=== PATIENT | female | born 1940 | race Caucasian/White ===

== ENCOUNTER 2018-08-15 11:46 | Inpatient (IN) | payer MEDICARE, BC ==
[~2018-08-15] VITALS: Ht 162.6 cm; Wt 76.9 kg
[2018-08-15] MEDS ORDERED: IPRATROPIUM (NEB) 0.5 MG/2.5 ML AMP INH STA (12:05)
[2018-08-15] MEDS ORDERED: ALBUTEROL 0.5% (NEB) 2.5 MG/0.5 ML AMP INH STA (12:05)
[2018-08-15] MEDS ORDERED: FUROSEMIDE 40 MG INJ IV ONE (13:00)
--- NOTE | 2018-08-15 13:10 | ERD ---
ER Documentation Chief Complaint Chief Complaint sob x couple of days HPI This is a 78-year-old female who was sent here by her primary care doctor for shortness of breath with low oxygenation. The patient had history of heart failure and is on Lasix every day. She is complaining of some gradual worsening edema to her lower extremities with some dyspnea on exertion. She saw her primary care doctor who had told her to go to the ER because of O2 sats in the upper 80s and a possible infection in the left lower lung. The patient says she has had a bit of a dry cough over the past couple of days but no fever no chills no abdominal pain. ROS All systems reviewed and are negative except as per history of present illness. PMhx/Soc Medical and Surgical Hx: pt denies Surgical Hx Anesthesia Reaction: No Hx Neurological Disorder: No Hx Respiratory Disorders: No Hx Cardiac Disorders: Yes (htn, hyperlipidemia) Hx Psychiatric Problems: No Hx Miscellaneous Medical Probl: Yes ("kidney problems") Hx Alcohol Use: No Hx Substance Use: No Hx Tobacco Use: No Smoking Status: Never smoker FmHx Family History: No coronary disease Physical Exam Vitals Vital Signs Date Temp Pulse Resp B/P (MAP) Pulse Ox O2 O2 Flow FiO2 Time Delivery Rate 08/15/18 66 20 96 Nasal 2.0 12:58 Cannula 08/15/18 98.3 70 18 125/60 87 11:51 (81) Physical Exam Const: Well-developed, well-nourished Head: Atraumatic, normocephalic Eyes: Normal Conjunctiva, PERRLA, EOMI, normal sclera, no nystagmus ENT: Normal External Ears, Nose and Mouth, moist mucus membranes. Neck: Full range of motion. No meningismus, no lymphadenopathy. Resp: [Bilateral, left greater than right rhonchi to the lower bases Cardio: Regular rate and rhythm, no murmurs, S1 S2 present Abd: Soft, non tender x 4, non distended. Normal bowel sounds, no guarding or rebound, no pulsitile abdominal masses or bruits Skin: No petechiae or rashes, no ecchymosis , no maculopapular rash Back: No midline or flank tenderness Ext: No cyanosis, mild lower extremity edema, FROM x 4, normal inspection, neurovascularly intact x 4 Neur: Awake and alert, STR 5/5 x 4, sensation intact x 4, no focal findings, cerebellum intact Psych: Normal Mood and Affect Result Diagram: 08/15/18 1220 08/15/18 1220 Results 24 hrs Laboratory Tests Test 08/15/18 12:20 White Blood Count 9.6 10^3/ul Red Blood Count 3.54 10^6/ul Hemoglobin 9.5 g/dl Hematocrit 31.5 % Mean Corpuscular Volume 89.0 fl Mean Corpuscular Hemoglobin 26.8 pg Mean Corpuscular Hemoglobin Concent 30.2 g/dl Red Cell Distribution Width 15.9 % Platelet Count 431 10^3/UL Mean Platelet Volume 9.4 fl Immature Granulocytes % 0.500 % Neutrophils % 66.7 % Lymphocytes % 23.6 % Monocytes % 6.3 % Eosinophils % 2.2 % Basophils % 0.7 % Nucleated Red Blood Cells % 0.0 /100WBC Immature Granulocytes # 0.050 10^3/ul Neutrophils # 6.4 10^3/ul Lymphocytes # 2.3 10^3/ul Monocytes # 0.6 10^3/ul Eosinophils # 0.2 10^3/ul Basophils # 0.1 10^3/ul Nucleated Red Blood Cells # 0.0 10^3/ul Sodium Level 142 mmol/L Potassium Level 4.6 mmol/L Chloride Level 107 mmol/L Carbon Dioxide Level 26 mmol/L Anion Gap 9 Blood Urea Nitrogen 51 mg/dl Creatinine 3.78 mg/dl Est Glomerular Filtrat Rate mL/min mL/min Glucose Level 226 mg/dl Calcium Level 9.3 mg/dl Total Bilirubin 0.3 mg/dl Direct Bilirubin 0.00 mg/dl Indirect Bilirubin 0.3 mg/dl Aspartate Amino Transf (AST/SGOT) 22 IU/L Alanine Aminotransferase (ALT/SGPT) 19 IU/L Alkaline Phosphatase 131 IU/L Troponin I Pending B-Type Natriuretic Peptide Pending Total Protein 7.7 g/dl Albumin 3.9 g/dl Globulin 3.80 g/dl Albumin/Globulin Ratio 1.02 Current Medications Medications Dose Sig/[place] Start Time Status Last (Trade) Ordered Route PRN Stop Time Admin Dose Reason Admin Albuterol 10 mg ONCE STAT 08/15/18 DC 08/15/18 (Proventil INH 12:05 08/15/18 12:46 0.5% (Neb)) 12:06 Ipratropium 1 mg ONCE STAT 08/15/18 DC 08/15/18 [place] INH 12:05 08/15/18 12:46 (Atrovent 12:06 0.02% (Neb)) Furosemide 40 mg ONCE ONCE 08/15/18 DC (Lasix) IV 13:00 08/15/18 13:01 Procedures/MDM Patient: HEATHER LUNA : 1940 Age: 78 Sex: F MR #: [id number] DOS: 08/15/18 1205 Ordering MD: ARMANDO WILSON DO Location: E/R Room/Bed: PROCEDURE: XR Chest. CLINICAL INDICATION: Chest pain TECHNIQUE: AP chest was obtained. COMPARISON: None. FINDINGS: Hypoventilatory chest. Heart mild to moderately enlarged. Mild pulmonary va scular congestion with perivascular wall indistinctness. Mild perihilar patchy densities. Rule out congestive heart or pulmonary edema. Bilateral tiny pleural effusions are suspected. Left basilar consolidation may all be due to atelectasis still additional infiltrate should be considered. IMPRESSION: 1. Congestive heart failure with mild interstitial pulmonary edema. 2. Bilateral tiny pleural effusions are suspected. 3. Left lower lobe consolidation may all be due to atelectasis however rule out acute infiltrate. RPTAT:AAJJ Physician aKne Date Time Electronically viewed and signed by Carmen Ann Physician on 08/15/2018 12:31 BM/ CC: ARMANDO WILSON DO [id number] EKG: Rate/Rhythm: Normal Sinus Rhythm,NL intervals QRS, ST, QT: NORMAL DE, QRS, QT] Impression: NORMAL EKG Patient received some IV Lasix. The patient's creatinine is elevated at 3.78 I do not know her baseline as this is her first visit here, she does tell me however that she has some renal insufficiency but does not know her numbers. Will need to admit for diuresis and eval for renal insufficiency Do not feel the patient is septic or clinically has pneumonia. She does not have any fever or productive sputum. She has had a chronic cough for a couple w eeks now she states. She does not meet sepsis criteria Departure Diagnosis: Primary Impression: Pulmonary edema Chronicity: acute Qualified Codes: J81.0 - Acute pulmonary edema Additional Impression: CHF (congestive heart failure) Heart failure type: unspecified Heart failure chronicity: unspecified Qualified Codes: I50.9 - Heart failure, unspecified Condition: Stable DYANA TRUJILLO DO Aug 15, 2018 13:10
[2018-08-15] MEDS ORDERED: LUBI24CA7 PO (13:21)
[2018-08-15] MEDS ORDERED: CLOP75TA27 PO (13:21)
[2018-08-15] MEDS ORDERED: LINA5TAB PO (13:21)
[2018-08-15] MEDS ORDERED: HYDR-3671 PO (13:21)
[2018-08-15] MEDS ORDERED: MAGN400T27 PO (13:21)
[2018-08-15] MEDS ORDERED: RANO10002 PO (13:21)
[2018-08-15] MEDS ORDERED: METO-429 PO (13:21)
[2018-08-15] MEDS ORDERED: SOLI10TA2 PO (13:21)
[2018-08-15] MEDS ORDERED: POTA8CAP PO (13:21)
[2018-08-15] MEDS ORDERED: ATOR20TA38 PO (13:21)
[2018-08-15] MEDS ORDERED: FURO40TA4 PO (13:21)
[2018-08-15] MEDS ORDERED: OLME1TAB37 PO (13:21)
[2018-08-15] MEDS ORDERED: ACETAMINOPHEN 325 MG TAB PO PRN (14:30)
[2018-08-15] MEDS ORDERED: ONDANSETRON 4 MG INJ IV PRN (14:30)
--- NOTE | 2018-08-15 17:55 | HP ---
Date/Time of Note Date/Time of Note DATE: 08/15/18 TIME: 17:53 Assessment/Plan VTE Prophylaxis SCD contraindicated: low risk/ambulating Pharmacological prophylaxis: LMWH Lines/Catheters IV Catheter Type (from Nrsg): [place] [employer] line still needed: No Urinary Cath still in place: No Reason Cath still needed: urinary retention Assessment/Plan Assessment/Plan 1. Systolic and diastolic heart failure progressively getting worse 2. Chronic kidney disease stage IV progressively getting worse 3. Diabetes type 2 better controlled 4. Hypertension with better control 5. Epigastric pain 6. Dizziness 7. Memory impairment 8. Aortic stenosis and mitral insufficiency 9. Unable chronic disease 10. Severe osteoarthritis of multiple joints 11. Unstable gait with recurrent episodes of fall 12. Major depression 13. Grief reaction 14. Status post cataract ectomy 15. Severe constipation with episodes of diarrhea 16. Pelvic arterial disease 17. Osteoporosis. Result Diagram: 08/15/18 1220 08/15/18 1220 Results 24hrs Laboratory Tests Test 08/15/18 12:20 White Blood Count 9.6 Red Blood Count 3.54 L Hemoglobin 9.5 L Hematocrit 31.5 L Mean Corpuscular Volume 89.0 Mean Corpuscular Hemoglobin 26.8 L Mean Corpuscular Hemoglobin Concent 30.2 L Red Cell Distribution Width 15.9 H Platelet Count 431 H Mean Platelet Volume 9.4 Immature Granulocytes % 0.500 H Neutrophils % 66.7 Lymphocytes % 23.6 Monocytes % 6.3 Eosinophils % 2.2 Basophils % 0.7 Nucleated Red Blood Cells % 0.0 Immature Granulocytes # 0.050 H Neutrophils # 6.4 Lymphocytes # 2.3 Monocytes # 0.6 Eosinophils # 0.2 Basophils # 0.1 Nucleated Red Blood Cells # 0.0 Prothrombin Time 12.3 Prothrombin Time Ratio 1.0 INR International Normalized Ratio 0.90 Activated Partial Thromboplast Time 28.5 Sodium Level 142 Potassium Level 4.6 Chloride Level 107 Carbon Dioxide Level 26 Anion Gap 9 Blood Urea Nitrogen 51 H Creatinine 3.78 H Est Glomerular Filtrat Rate mL/min Glucose Level 226 H Calcium Level 9.3 Total Bilirubin 0.3 Direct Bilirubin 0.00 Indirect Bilirubin 0.3 Aspartate Amino Transf (AST/SGOT) 22 Alanine Aminotransferase (ALT/SGPT) 19 Alkaline Phosphatase 131 H Troponin I < 0.012 B-Type Natriuretic Peptide 3310 H Total Protein 7.7 Albumin 3.9 Globulin 3.80 H Albumin/Globulin Ratio 1.02 HPI/ROS Admit Date/Time Admit Date/Time Aug 15, 2018 at 14:08 Hx of Present Illness Worsening of her shortness of breath. Getting tired easily. Unable to walk without support. Progressively getting worse seen in office 2 days ago. Found to be in moderate respiratory distress with 2+ edema both lower extremities. Adjusted the dose of diuretics. Recommended to go to the hospital. Refused. Today I received a call that she is in a more short of breath I recommended immediately go to the hospital and she was admitted. ROS Subjective hx not possible: pt critical Constitutional: chills, diaphoresis, disoriented, fatigue, nausea, weight change (Gained about 2 pounds last week.); No no complaints, No improved, No febrile, No poor po, No other ENT: congestion, dysphagia (63); No no complaints, No bleeding, No pain, No discharge, No sore throat, No other Respiratory: cough, pleuritic pain, shortness of breath; No no complaints, No pain, No sputum, No wheezing, No other Cardiovascular: edema, lightheadedness, orthopenea; No no complaints, No chest pain, No palpitations, No paroxysmal nocturnal dyspnea, No other Gastrointestinal: constipation, decreased appetite, flatus; No no complaints, No pain, No blood, No diarrhea, No nausea, No passing stool, No vomiting, No other Genitourinary: dysuria; No no complaints, No bleeding, No discharge, No flank pain, No hematuria, No other Musculoskeletal: back pain, bone/joint pain, neck pain; No no complaints, No restricted range of motion, No swelling, No other Skin: erythema, pruritis, rash; No no complaints, No bruising, No laceration, No skin lesions, No other Neurologic: dizziness, focal-weakness; No no complaints, No confusion, No headache, No syncope, No seizure, No other Endocrine: dry skin; No no complaints, No polyuria, No polydypsia, No temp intolerance, No weight change, No other Lymphatic: No no complaints, No adenopathy, No tender nodes, No lymphadema, No other Psychological: anxiety, confusion, depression; No no complaints, No nl mood/affect, No suicidal, No other Immunologic: No no complaints, No immunodeficiency, No pruritis, No rhinitis, No urticaria, No other PMH/Family/Social Past Medical History Medical History: angina, congestive heart failure, coronary artery disease, diabetes, diverticulitis, GERD, high cholesterol, hypertension, hypothyroid, renal disease, urinary tract infection (This is is in the malleolus exhibits movements of scalp this is a pleasant) Medications Current Medications Ondansetron HCl (Zofran Inj) 4 mg ER BRIDGE PRN IV NAUSEA/VOMITING; Start 08/15/18 at 14:30; Stop 08/16/18 at 14:29 Acetaminophen (Tylenol Tab) 650 mg ER BRIDGE PRN PO .MILD PAIN 1-3 OR TEMP; Start 08/15/18 at 14:30; Stop 08/16/18 at 14:29 Coded Allergies: No Known Allergy (Unverified , 08/15/18) Family History Significant Family History: no pertinent family hx Social History Alcohol Use: none Smoking Status: Never smoker Drug Use: none Exam/Review of Systems Vital Signs Vitals Vital Signs Date Temp Pulse Resp B/P (MAP) Pulse Ox O2 O2 Flow FiO2 Time Delivery Rate 08/15/18 98.0 72 18 137/64 98 Room Air 17:10 (88) 08/15/18 2.0 12:58 Exam Constitutional: alert, oriented (Not in time.), well developed, distress, frail; No non-verbal, No other Psych: anxiety, confusion, depression; No no complaints, No nl mood/affect, No suicidal, No other Head: normocephalic, atraumatic; No lacerations, No hematomas, No other Eyes: EOMI, nl lids, PERRL (Status post cataract ectomy changes.); No nl conjunctiva, No nl sclera, No icteric, No fundi, disc, No other ENMT: tympanic membranes; No nl external ears & nose, No nl lips & teeth, No nl nasal mucosa & septum, No mucosa pink and moist, No intubated, No other Neck: jvd, bruits; No supple, No non-tender, No masses, No thyromegaly, No nuchal rigidity, No other Respiratory: normal air movement, congested cough, crackles/rales, diminished breath sounds; No clear to auscultation, No intercostal retraction, No labored breathing, No respirations, No tactile fremitus, No wheezing, No other Cardiovascular: regular rate and rhythm, nl pulses, bruits, systolic murmur; No diastolic murmur, No edema, No gallop, No irregular rhythm, No jugular venous distention (JVD), No murmurs/extra sounds, No rub, No S3, No S4, No other Gastrointestinal: nl liver, spleen, bowel sounds, distended; No soft, No non-tender, No ascites, No firm, No hepatomegaly, No mass, No rebound or guarding, No splenomegaly, No surgical scars, No tender, No other Genitourinary - Female: nl adnexae, nl external genitalia; No CMT, No CVA tenderness, No uterus, No other Musculoskeletal: joint tenderness, muscle tone, muscle weakness (Decreased tone decreased muscular mass), swelling ( of both lower extremities.); No nl extremities to inspection, No nl gait and stance, No range of motion, No spine non-tender, No other Extremities: normal pulses, edema, pitting pedal edema; No calf tenderness, No cyanosis, No clubbing, No palpable cord, No tenderness, No other Neurological: [employer] II-XII intact, nl mental status (Memory impairment decreased mood decreased energy.); No nl speech, No nl strength, No confused, No DTR's symmetric, No focal weakness, No lethargic, No numbness, No reflexes, No unresponsive, No other Skin: nl turgor (Decreased), rash or lesions; No diaphoresis, No ecchymosis, No laceration, No puncture, No other Lymph: No nl lymph nodes, No enlarged, No nontender, No other JOANN PATEL MD Aug 15, 2018 17:55
[2018-08-15] MEDS: CLOPIDOGREL 75 MG TAB PO SCH (18:00)
[2018-08-15] MEDS: SOLIFENACIN 5 MG TAB PO SCH (18:00)
[2018-08-15 18:01] VITALS: PULSE 73
[2018-08-15 18:14] VITALS: Ht 162.6 cm; Wt 76.9 kg
[2018-08-15 18:21] VITALS: BP 162/72; PULSE 77; RESP 17
[2018-08-15 18:42] VITALS: BP 156/61
[2018-08-15 20:00] VITALS: BP 166/74; PULSE 81; PULSE 82; RESP 18
[2018-08-15] MEDS: ALBUTEROL/IPRATROPIUM (NEB) 3 ML AMP HHN SCH (20:41)
[2018-08-15] MEDS: RANOLAZINE (SR) 500 MG TAB PO SCH (20:54)
[2018-08-15] MEDS: POTASSIUM CHLORIDE (SR) 8 MEQ CAP PO SCH (20:54)
[2018-08-15] MEDS: SACUBITRIL/VALSARTAN (24mg-26mg) TABLET PO SCH (20:54)
[2018-08-15] MEDS: MAGNESIUM OXIDE 400 MG TAB PO SCH (20:54)
[2018-08-15] MEDS: LUBIPROSTONE 24 MCG CAP PO SCH (20:54)
[2018-08-15] MEDS: METOPROLOL 50 MG TAB PO SCH (20:55)
[2018-08-15] MEDS: ATORVASTATIN 20 MG TAB PO SCH (20:55)
[2018-08-15] MEDS: FUROSEMIDE 40 MG TAB PO SCH (20:56)
[2018-08-15] MEDS ORDERED: DEXTROSE 50% 50 ML SYRINGE IV PRN ×2 (21:00)
[2018-08-15] MEDS ORDERED: GLUCAGON 1 MG INJ IM PRN (21:00)
[2018-08-15] MEDS ORDERED: ACETAMINOPHEN 500 MG TAB PO PRN (21:00)
[2018-08-15] MEDS ORDERED: GLUCOSE GEL 15 GRAM TUBE PO PRN ×2 (21:00)
[2018-08-15] MEDS ORDERED: GLUCOSE GEL 15 GRAM TUBE BUCCAL PRN (21:00)
[2018-08-15] MEDS: INSULIN ASPART [NOVOLOG] 3 ML PEN SC SCH (22:29)
[2018-08-16] VITALS (10 sets, daily range): BP systolic 133–142; BP diastolic 62–77; PULSE 64–83; RESP 18–20
[2018-08-16] MEDS: INSULIN ASPART [NOVOLOG] 3 ML PEN SC SCH ×4 (00:56→17:25)
[2018-08-16] MEDS: ALBUTEROL/IPRATROPIUM (NEB) 3 ML AMP HHN SCH ×4 (02:04→19:28)
[2018-08-16] MEDS: RANOLAZINE (SR) 500 MG TAB PO SCH (08:13)
[2018-08-16] MEDS: LINAGLIPTIN 5 MG TABLET PO SCH (08:13)
[2018-08-16] MEDS: POTASSIUM CHLORIDE (SR) 8 MEQ CAP PO SCH (08:13)
[2018-08-16] MEDS: METOPROLOL 50 MG TAB PO SCH ×2 (08:14→21:00)
[2018-08-16] MEDS: SOLIFENACIN 5 MG TAB PO SCH (08:14)
[2018-08-16] MEDS: SACUBITRIL/VALSARTAN (24mg-26mg) TABLET PO SCH (08:14)
[2018-08-16] MEDS: CLOPIDOGREL 75 MG TAB PO SCH (08:14)
[2018-08-16] MEDS: LUBIPROSTONE 24 MCG CAP PO SCH ×2 (08:14→20:59)
[2018-08-16] MEDS: FUROSEMIDE 40 MG TAB PO SCH (08:14)
[2018-08-16] MEDS: MAGNESIUM OXIDE 400 MG TAB PO SCH (08:14)
--- NOTE | 2018-08-16 10:58 | CONS ---
Assessment/Plan Assessment/Plan Hospital Course (Demo Recall) Acute on chronic ?diastolic dysfunction: Suspect diastolic dysfunction rather than systolic as EF reportedly normal 1 yr prior. Trigger is likely salt indiscretion. Mild on exam currently after diuresis but still decompensated Acute respiratory failure: due to CHF. Pulm edema on CXR on admission. Off oxygen this am sat 88-90% HTN DM CKD: unclear baseline but reportedly stage 4. Cr 3.8 on admission. HL -given lasix 40mg PO this am. Will give 20mg IV this evening. Probably will need maintenance 20mg daily on discharge and to avoid salt -echo -d/c ranexa as no chest pain and no h/o CAD, normal stress one year ago -d/c entresto as no indication of systolic heart failure as of yet -continue metoprolol 50mg BID -restart amlodipine 10mg -hold olmesartan 36 hours as she received entresto -continue hydralazine 25mg BID -?clonidine patch to be replaced per daughter -plavix, lipitor 20mg Consultation Date/Type/Reason Admit Date/Time Aug 15, 2018 at 14:08 Type of Consult Cardiology Requesting Provider: JOANN PATEL MD Date/Time of Note DATE: 08/16/18 TIME: 10:49 Hx of Present Illness 78 yo F with a h/o CKD (unknown baseline), DM, HTN, HL, who presented with dyspnea, edema, hypoxia. She notes that one year ago she had evaluation by Dr. Cui of cardiology and she was told everything cardiac related was normal including a normal stress test and echo. Since then she has been doing well but over the past 2 months she has been having dyspnea on exertion and worsening edema. Her daughter gives her lasix 40mg on average once a week for edema. She was noted to have hypoxia at Dr. Patel's office and was asked to come in for admission. CXR confirmed pulm edema and she was given IV lasix with good UOP. She denies chest pain or h/o ND. Daughter and pt admit she uses a lot of salt in her diet. Pt uses clonidine patch 0.3, hydralazine 25mg BID, metoprolol 50mg BID, olmesartan 40mg/amlodipine 10mg/HCTZ 25mg for BP control. She takes plavix and lipitor 20mg for primary prevention. per hPi Past Medical History per HPI Home Meds Reported Medications Magnesium Oxide* (Mag-Oxide*) 400 Mg Tablet, 400 MG PO DAILY, TAB 08/15/18 Atorvastatin Calcium* (Atorvastatin Calcium*) 20 Mg Tablet, 20 MG PO QHS, #30 TAB 08/15/18 Hydralazine Hcl* (Hydralazine Hcl*) 25 Mg Tab, 25 MG PO BID WITH MEALS, #120 TAB 08/15/18 Furosemide* (Furosemide*) 40 Mg Tablet, 40 MG PO DAILY, TAB 08/15/18 Solifenacin* (Vesicare*) 10 Mg Tablet, 10 MG PO DAILY, TAB 08/15/18 Ranolazine* (Ranexa*) 1,000 Mg Tab.sr.12h, 1000 MG PO Q12, TAB 08/15/18 Lubiprostone* (Amitiza*) 24 Mcg Capsule, 24 MCG PO BID, #60 CAP 08/15/18 Metoprolol Tartrate* (Lopressor*) 50 Mg Tab, 50 MG PO BID, #60 TAB 08/15/18 Linagliptin (TRADJENTA) 5 Mg Tablet, 5 MG PO DAILY, TAB 08/15/18 Clopidogrel Bisulfate (Clopidogrel) 75 Mg Tablet, 75 MG PO DAILY, #30 TAB 08/15/18 Lwlputlmlu-Bmzijgunuv-ISKS (Tribenzor) 40-10-25 Mg Tablet, 1 TAB PO DAILY, TAB 08/15/18 Potassium Chloride* (Potassium Chloride*) 8 Meq Capsule.er, 8 MEQ PO DAILY, CAP 08/15/18 Medications Current Medications Atorvastatin Calcium (Lipitor) 20 mg QHS PO Last administered on 08/15/18at 20:55; Admin Dose 20 MG; Start 08/15/18 at 21:00 Clopidogrel Bisulfate (plaVIX) 75 mg DAILY PO Last administered on 08/16/18at 08:14; Admin Dose 75 MG; Start 08/15/18 at 18:00 Furosemide (Lasix) 40 mg DAILY PO Last administered on 08/16/18at 08:14; Admin Dose 40 MG; Start 08/15/18 at 18:00 Hydralazine HCl (Apresoline) 25 mg BID WITH MEALS PO Last administered on 08/16/18at 08:13; Admin Dose 25 MG; Start 08/15/18 at 18:00 Linagliptin (Tradjenta) 5 mg DAILY PO Last administered on 08/16/18 08:13; Admin Dose 5 MG; Start 08/16/18 at 09:00 Lubiprostone (Amitiza) 24 mcg BID PO Last administered on 08/16/18 08:14; Admin Dose 24 MCG; Start 08/15/18 at 21:00 Magnesium Oxide (Mag-Ox 400) 400 mg DAILY PO Last administered on 08/16/18 08:14; Admin Dose 400 MG; Start 08/15/18 at 18:00 Metoprolol Tartrate (Lopressor) 50 mg BID PO Last administered on 08/16/18 08:14; Admin Dose 50 MG; Start 08/15/18 at 21:00 Potassium Chloride (Micro-K) 8 meq DAILY PO Last administered on 08/16/18 08:13; Admin Dose 8 MEQ; Start 08/15/18 at 18:00 Ranolazine (Ranexa) 1,000 mg Q12 PO Last administered on 08/16/18 08:13; Admin Dose 1,000 MG; Start 08/15/18 at 21:00 Solifenacin (Vesicare) 10 mg DAILY PO Last administered on 08/16/18 08:14; Admin Dose 10 MG; Start 08/15/18 at 18:00 Sacubitril/ Valsartan (Entresto 24 Mg-26 Mg) 1 tab BID PO Last administered on 08/16/18 08:14; Admin Dose 1 TAB; Start 08/15/18 at 21:00 Albuterol/ Ipratropium (Duoneb) 3 ml Q6H RESP THERAPY HHN Last administered on 08/16/18 07:43; Admin Dose 3 ML; Start 08/15/18 at 20:00 Insulin Aspart (Novolog Insulin Pen) NOVOLOG *MODERATE* ALGORI... Q6 SC Last administered on 08/16/18 06:11; Admin Dose 2 UNIT; Start 08/15/18 at 21:00; Stop 08/16/18 at 20:59 Acetaminophen (Tylenol Tab) 500 mg Q6H PRN PO MILD PAIN(1-3)OR ELEVATED TEMP; Start 08/15/18 at 21:00 Miscellaneous Information 1 ea NOTE XX ; Start 08/15/18 at 21:00 Glucose (Glutose) 15 gm Q15M PRN PO DECREASED GLUCOSE; Start 08/15/18 at 21:00 Glucose (Glutose) 22.5 gm Q15M PRN PO DECREASED GLUCOSE; Start 08/15/18 at 21:00 Dextrose (D50w Syringe) 25 ml Q15M PRN IV DECREASED GLUCOSE; Start 08/15/18 at 21:00 Dextrose (D50w Syringe) 50 ml Q15M PRN IV DECREASED GLUCOSE; Start 08/15/18 at 21:00 Glucagon (Glucagen) 1 mg Q15M PRN IM DECREASED GLUCOSE; Start 08/15/18 at 21:00 Glucose (Glutose) 15 gm Q15M PRN BUCCAL DECREASED GLUCOSE; Start 08/15/18 at 21:00 Insulin Aspart (Novolog Insulin Pen) (Adult SC Insulin - Moder... WITH MEALS BEDTIME SC ; Start 08/16/18 at 21:00 Diagnostic Test (Pha) (Accu-Chek) 1 ea 02 XX ; Start 08/17/18 at 02:00 Allergies: Coded Allergies: No Known Allergy (Unverified , 08/15/18) Social History Smoking Status: Never smoker Exam/Review of Systems Vital Signs Vitals Vital Signs Date Temp Pulse Resp B/P (MAP) Pulse Ox O2 O2 Flow FiO2 Time Delivery Rate 08/16/18 Nasal 5.0 08:30 Cannula 08/16/18 74 08:01 08/16/18 98.0 19 134/72 93 07:50 (92) 08/15/18 100 20:13 Intake and Output 08/15/18 08/15/18 08/16/18 1515:00 23:00 07:00 IntakeIntake Total 400 ml OutputOutput Total 900 ml BalanceBalance -500 ml Exam Constitutional: alert, oriented Psych: no complaints, nl mood/affect Head: normocephalic, atraumatic Neck: jvd (8-9cm) Respiratory: crackles/rales (mid lungs); No clear to auscultation Cardiovascular: regular rate and rhythm, edema (trace), systolic murmur (2/6 JAROD) Gastrointestinal: soft, non-tender; No distended Musculoskeletal: No nl extremities to inspection Neurological: nl mental status, nl speech Labs Result Diagram: 08/15/18 1220 08/15/18 1220 Results 24hrs Laboratory Tests Test 08/15/18 12:20 08/15/18 18:02 08/15/18 18:51 08/15/18 18:52 White Blood Count 9.6 Red Blood Count 3.54 L Hemoglobin 9.5 L Hematocrit 31.5 L Mean Corpuscular 89.0 Volume Mean Corpuscular 26.8 L Hemoglobin Mean Corpuscular 30.2 L Hemoglobin Concent Red Cell 15.9 H Distribution Width Platelet Count 431 H Mean Platelet 9.4 Volume Immature 0.500 H Granulocytes % Neutrophils % 66.7 Lymphocytes % 23.6 Monocytes % 6.3 Eosinophils % 2.2 Basophils % 0.7 Nucleated Red 0.0 Blood Cells % Immature 0.050 H Granulocytes # Neutrophils # 6.4 Lymphocytes # 2.3 Monocytes # 0.6 Eosinophils # 0.2 Basophils # 0.1 Nucleated Red 0.0 Blood Cells # Prothrombin Time 12.3 Prothrombin Time 1.0 Ratio INR International 0.90 Normalized Ratio Activated 28.[address] Time Sodium Level 142 Potassium Level 4.6 Chloride Level 107 Carbon Dioxide 26 Level Anion Gap 9 Blood Urea 51 H Nitrogen Creatinine 3.78 H Est Glomerular Filtrat Rate mL/min Glucose Level 226 H Calcium Level 9.3 Total Bilirubin 0.3 Direct Bilirubin 0.00 Indirect Bilirubin 0.3 Aspartate Amino 22 Transf (AST/SGOT) Alanine 19 Aminotransferase ( ALT/SGPT) Alkaline 131 H Phosphatase Troponin I < 0.012 < 0.012 B-Type Natriuretic 3310 H Peptide Total Protein 7.7 Albumin 3.9 Globulin 3.80 H Albumin/Globulin 1.02 Ratio Blood Gas Specimen Blood arterial Source Arterial Blood 08/15/2018 8:00:13 Date Drawn PM Arterial Blood pH 7.393 (Temp corrected) Arterial Blood 42.8 pCO2 (Temp correct) Arterial Blood pO2 39.5 *L (Temp corrected) Arterial Blood 25.5 HCO3 Arterial Blood 0.5 Base Excess Arterial Blood 73.9 L Oxygen Saturation Kimo Test ACCEPTAB Arterial Blood Gas Left Radial Puncture Site Arterial 0.3 Blood Carboxyhemog lobin Arterial Blood 0 Methemoglobin Blood Gas A-a O2 59.0 H Differential Oxyhemoglobin 73.7 L Percent Blood Gas 37.0 Temperature Blood Gas Modality ROOM AIR FiO2 21.0 Blood Gas Critical ChiomaDANELSON RN Value Read Back Blood Gas Notified MA Whom Blood Gas Notified 08/15/2018 8:11:51 Time PM Magnesium Level 2.3 Carcinoembryonic 2.2 Antigen Thyroid 2.060 Stimulating Hormone (TSH) Iron Level 13 L Total Iron Binding 283 Capacity Percent Iron 5 L Saturation Creatine Kinase 45 Creatine Kinase 1.4 Index Creatinine Kinase 0.62 MB (Mass) Test 08/15/18 21:05 08/15/18 22:12 08/16/18 00:25 08/16/18 00:35 Bedside Glucose 284 H 248 H 182 Creatine Kinase 40 Creatine Kinase 1.2 Index Creatinine Kinase 0.46 MB (Mass) Troponin I < 0.012 Test 08/16/18 06:03 08/16/18 08:11 Bedside Glucose 179 160 Medications Medications Current Medications Atorvastatin Calcium (Lipitor) 20 mg QHS PO Last administered on 08/15/18 20:55; Admin Dose 20 MG; Start 08/15/18 at 21:00 Clopidogrel Bisulfate (plaVIX) 75 mg DAILY PO Last administered on 08/16/18 08:14; Admin Dose 75 MG; Start 08/15/18 at 18:00 Furosemide (Lasix) 40 mg DAILY PO Last administered on 08/16/18 08:14; Admin Dose 40 MG; Start 08/15/18 at 18:00 Hydralazine HCl (Apresoline) 25 mg BID WITH MEALS PO Last administered on 08/16/18 08:13; Admin Dose 25 MG; Start 08/15/18 at 18:00 Linagliptin (Tradjenta) 5 mg DAILY PO Last administered on 08/16/18 08:13; Admin Dose 5 MG; Start 08/16/18 at 09:00 Lubiprostone (Amitiza) 24 mcg BID PO Last administered on 08/16/18 08:14; Admin Dose 24 MCG; Start 08/15/18 at 21:00 Magnesium Oxide (Mag-Ox 400) 400 mg DAILY PO Last administered on 08/16/18 08:14; Admin Dose 400 MG; Start 08/15/18 at 18:00 Metoprolol Tartrate (Lopressor) 50 mg BID PO Last administered on 08/16/18 08:14; Admin Dose 50 MG; Start 08/15/18 at 21:00 Potassium Chloride (Micro-K) 8 meq DAILY PO Last administered on 4/7/19at 08:13; Admin Dose 8 MEQ; Start 08/15/18 at 18:00 Ranolazine (Ranexa) 1,000 mg Q12 PO Last administered on 08/16/18 08:13; Admin Dose 1,000 MG; Start 08/15/18 at 21:00 Solifenacin (Vesicare) 10 mg DAILY PO Last administered on 08/16/18 08:14; Admin Dose 10 MG; Start 08/15/18 at 18:00 Sacubitril/ Valsartan (Entresto 24 Mg-26 Mg) 1 tab BID PO Last administered on 08/16/18 08:14; Admin Dose 1 TAB; Start 08/15/18 at 21:00 Albuterol/ Ipratropium (Duoneb) 3 ml Q6H RESP THERAPY HHN Last administered on 08/16/18 07:43; Admin Dose 3 ML; Start 08/15/18 at 20:00 Insulin Aspart (Novolog Insulin Pen) NOVOLOG *MODERATE* ALGORI... Q6 SC Last administered on 08/16/18 06:11; Admin Dose 2 UNIT; Start 08/15/18 at 21:00; Stop 08/16/18 at 20:59 Acetaminophen (Tylenol Tab) 500 mg Q6H PRN PO MILD PAIN(1-3)OR ELEVATED TEMP; Start 08/15/18 at 21:00 Miscellaneous Information 1 ea NOTE XX ; Start 08/15/18 at 21:00 Glucose (Glutose) 15 gm Q15M PRN PO DECREASED GLUCOSE; Start 08/15/18 at 21:00 Glucose (Glutose) 22.5 gm Q15M PRN PO DECREASED GLUCOSE; Start 08/15/18 at 21:00 Dextrose (D50w Syringe) 25 ml Q15M PRN IV DECREASED GLUCOSE; Start 08/15/18 at 21:00 Dextrose (D50w Syringe) 50 ml Q15M PRN IV DECREASED GLUCOSE; Start 08/15/18 at 21:00 Glucagon (Glucagen) 1 mg Q15M PRN IM DECREASED GLUCOSE; Start 08/15/18 at 21:00 Glucose (Glutose) 15 gm Q15M PRN BUCCAL DECREASED GLUCOSE; Start 08/15/18 at 21:00 Insulin Aspart (Novolog Insulin Pen) (Adult SC Insulin - Moder... WITH MEALS BEDTIME SC ; Start 08/16/18 at 21:00 Diagnostic Test (Pha) (Accu-Chek) 1 XX ; Start 08/17/18 at 02:00 FUAD RODRIGUEZ Aug 16, 2018 10:58
[2018-08-16] MEDS: AMLODIPINE 10 MG TAB PO SCH (11:54)
--- NOTE | 2018-08-16 13:49 | PN ---
Date/Time of Note Date/Time of Note DATE: 08/16/18 TIME: 13:39 Assessment/Plan VTE Prophylaxis Risk score (from Ns)>0 risk: 7 SCD applied (from [facility] [place] No SCD contraindicated: low risk/ambulating Pharmacological prophylaxis: LMWH Lines/Catheters IV Catheter Type (from [facility]): [place] line still needed: No Urinary Cath still in place: No Reason Cath still needed: urinary retention Assessment/Plan Assessment/Plan 1. Systolic and diastolic heart failure progressively getting worse 2. Chronic kidney disease stage IV progressively getting worse 3. Diabetes type 2 better controlled 4. Hypertension with better control 5. Epigastric pain 6. Dizziness 7. Memory impairment 8. Aortic stenosis and mitral insufficiency 9. Unable chronic disease 10. Severe osteoarthritis of multiple joints 11. Unstable gait with recurrent episodes of fall 12. Major depression 13. Grief reaction 14. Status post cataract ectomy 15. Severe constipation with episodes of diarrhea 16. Pelvic arterial disease 17. Osteoporosis. 18 severe hypoxemia necessitating rather high flow oxygen now 5 L/min. 19. Indifference toward her overall health condition, apathetic depressed. Result Diagram: 08/15/18 1220 08/15/18 1220 Results 24hrs Laboratory Tests Test 08/15/18 18:02 08/15/18 18:51 08/15/18 18:52 08/15/18 21:05 Blood Gas Specimen Blood arterial Source Arterial Blood 08/15/2018 8:00:13 Date Drawn PM Arterial Blood pH 7.393 (Temp corrected) Arterial Blood 42.8 pCO2 (Temp correct) Arterial Blood pO2 39.5 *L (Temp corrected) Arterial Blood 25.5 HCO3 Arterial Blood 0.5 Base Excess Arterial Blood 73.9 L Oxygen Saturation Kimo Test ACCEPTAB Arterial Blood Gas Left Radial Puncture Site Arterial 0.3 Blood Carboxyhemog lobin Arterial Blood 0 Methemoglobin Blood Gas A-a O2 59.0 H Differential Oxyhemoglobin 73.7 L Percent Blood Gas 37.0 Temperature Blood Gas Modality ROOM AIR FiO2 21.0 Blood Gas Critical MARCK GUERRIER Value Read Back Blood Gas Notified DIVINE Whom Blood Gas Notified 08/15/2018 8:11:51 Time PM Magnesium Level 2.3 Carcinoembryonic 2.2 Antigen Thyroid 2.060 Stimulating Hormone (TSH) Iron Level 13 L Total Iron Binding 283 Capacity Percent Iron 5 L Saturation Creatine Kinase 45 Creatine Kinase 1.4 Index Creatinine Kinase 0.62 MB (Mass) Troponin I < 0.012 Bedside Glucose 284 H Test 08/15/18 22:12 08/16/18 00:25 08/16/18 00:35 08/16/18 06:03 Bedside Glucose 248 H 182 179 Creatine Kinase 40 Creatine Kinase 1.2 Index Creatinine Kinase 0.46 MB (Mass) Troponin I < 0.012 Test 08/16/18 08:11 08/16/18 11:52 Bedside Glucose 160 246 H Subjective 24 Hr Interval Summary Free Text/Dictation Shortness of breath mildly improved. I explained the patient and the daughter about her current severe hypoxemic status and necessity of continuation of oxygen at home 24 hours time yesterday's was started on 6 L/min and now it is decreased to 5. Liters per minute and saturation currently at bedside is 92%. Patient is 5 L of oxygen per minute at home along with oxygen equipments coming with that. Constitutional: improved, diaphoresis, disoriented, poor po, requiring O2; No no complaints, No chills, No febrile, No requiring IVF, No other Eyes: redness; No no complaints, No pain, No discharge, No visual change, No other ENT: congestion, dysphagia, sore throat; No no complaints, No bleeding, No pain, No discharge, No other Respiratory: cough, pleuritic pain, shortness of breath; No no complaints, No pain, No sputum, No wheezing, No other Cardiovascular: edema, lightheadedness, palpitations; No no complaints, No chest pain, No orthopenea, No paroxysmal nocturnal dyspnea, No other Gastrointestinal: constipation, decreased appetite, flatus, nausea, vomiting Genitourinary: dysuria, flank pain; No no complaints, No bleeding, No discharge, No hematuria, No other Musculoskeletal: back pain, bone/joint pain, neck pain Skin: pruritis; No no complaints, No bruising, No erythema, No laceration, No rash, No skin lesions, No other Neurologic: confusion, dizziness, headache; No no complaints, No focal-weakness, No syncope, No seizure, No other Endocrine: dry skin; No no complaints, No polyuria, No polydypsia, No temp intolerance, No other Lymphatic: No no complaints, No adenopathy, No tender nodes, No lymphadema, No other Psychological: anxiety, confusion; No no complaints, No nl mood/affect, No depression, No suicidal, No other Immunologic: No no complaints, No immunodeficiency, No pruritis, No rhinitis, No urticaria, No other Exam/Review of Systems Exam Vitals Vital Signs Date Temp Pulse Resp B/P (MAP) Pulse Ox O2 O2 Flow FiO2 Time Delivery Rate 08/16/18 98.7 83 19 135/65 94 11:22 (88) 08/16/18 Nasal 5.0 08:30 Cannula 08/15/18 100 20:13 Intake and Output 08/15/18 08/15/18 08/16/18 1515:00 23:00 07:00 IntakeIntake Total 400 ml OutputOutput Total 900 ml BalanceBalance -500 ml Constitutional: alert, oriented (Not following time.), well developed, di stress, frail; No non-verbal, No obese, No other Psych: anxiety, confusion, depression; No no complaints, No nl mood/affect, No suicidal, No other Head: normocephalic, atraumatic; No lacerations, No hematomas, No other Eyes: EOMI, nl lids, nl sclera, PERRL, other (Pale sclerae bilaterally.) ENMT: No nl external ears & nose, No nl lips & teeth, No nl nasal mucosa & septum, No mucosa pink and moist, No intubated, No tympanic membranes, No other Neck: jvd, bruits, nuchal rigidity; No supple, No non-tender, No masses, No thyromegaly, No other Respiratory: congested cough, diminished breath sounds; No clear to auscultation, No normal air movement, No crackles/rales, No intercostal retraction, No labored breathing, No respirations, No tactile fremitus, No wheezing, No other Cardiovascular: regular rate and rhythm, nl pulses, edema (Significantly less comparing with yesterday right more than left lower extremities.); No bruits, No diastolic murmur, No gallop, No irregular rhythm, No jugular venous distention (JVD), No murmurs/extra sounds, No rub, No systolic murmur, No S3, No S4, No other Gastrointestinal: nl liver, spleen, bowel sounds, distended, rebound or guarding; No soft, No non-tender, No ascites, No firm, No hepatomegaly, No mass, No splenomegaly, No surgical scars, No tender, No other Genitourinary - Female: CVA tenderness; No nl adnexae, No nl external genitalia, No CMT, No uterus, No other Musculoskeletal: nl gait and stance, joint tenderness, muscle tone, muscle weakness (Unstable gait with decreased muscular tone and mass.); No nl extremities to inspection, No range of motion, No spine non-tender, No swelling, No other Extremities: normal pulses, edema; No calf tenderness, No cyanosis, No clubbing, No pitting pedal edema, No palpable cord, No tenderness, No other Neurological: RED HAT OPEN STACK ADMINISTRATOR II-XII intact (Hearing impairment.), nl strength (Decreased), confused (On and off.), lethargic, numbness; No nl mental status, No nl speech, No DTR's symmetric, No focal weakness, No reflexes, No unresponsive, No other Skin: nl turgor (Decreased.); No rash or lesions, No diaphoresis, No ecchymosis, No laceration, No puncture, No other Lymph: No nl lymph nodes, No enlarged, No nontender, No other Results Results 24hrs Laboratory Tests Test 08/15/18 18:02 08/15/18 18:51 08/15/18 18:52 08/15/18 21:05 Blood Gas Specimen Blood arterial Source Arterial Blood 08/15/2018 8:00:13 Date Drawn PM Arterial Blood pH 7.393 (Temp corrected) Arterial Blood 42.8 pCO2 (Temp correct) Arterial Blood pO2 39.5 *L (Temp corrected) Arterial Blood 25.5 HCO3 Arterial Blood 0.5 Base Excess Arterial Blood 73.9 L Oxygen Saturation Kimo Test ACCEPTAB Arterial Blood Gas Left Radial Puncture Site Arterial 0.3 Blood Carboxyhemog lobin Arterial Blood 0 Methemoglobin Blood Gas A-a O2 59.0 H Differential Oxyhemoglobin 73.7 L Percent Blood Gas 37.0 Temperature Blood Gas Modality ROOM AIR FiO2 21.0 Blood Gas Critical JDANELSON RN Value Read Back Blood Gas Notified MA Whom Blood Gas Notified 08/15/2018 8:11:51 Time PM Magnesium Level 2.3 Carcinoembryonic 2.2 Antigen Thyroid 2.060 Stimulating Hormone (TSH) Iron Level 13 L Total Iron Binding 283 Capacity Percent Iron 5 L Saturation Creatine Kinase 45 Creatine Kinase 1.4 Index Creatinine Kinase 0.62 MB (Mass) Troponin I < 0.012 Bedside Glucose 284 H Test 08/15/18 22:12 08/16/18 00:25 08/16/18 00:35 08/16/18 06:03 Bedside Glucose 248 H 182 179 Creatine Kinase 40 Creatine Kinase 1.2 Index Creatinine Kinase 0.46 MB (Mass) Troponin I < 0.012 Test 08/16/18 08:11 08/16/18 11:52 Bedside Glucose 160 246 H Medications Medication Current Medications Atorvastatin Calcium (Lipitor) 20 mg QHS PO Last administered on 08/15/18 2 0:55; Admin Dose 20 MG; Start 08/15/18 at 21:00 Clopidogrel Bisulfate (plaVIX) 75 mg DAILY PO Last administered on 08/16/18 08:14; Admin Dose 75 MG; Start 08/15/18 at 18:00 Hydralazine HCl (Apresoline) 25 mg BID WITH MEALS PO Last administered on 08/16/18 08:13; Admin Dose 25 MG; Start 08/15/18 at 18:00 Linagliptin (Tradjenta) 5 mg DAILY PO Last administered on 08/16/18 08:13; Admin Dose 5 MG; Start 08/16/18 at 09:00 Lubiprostone (Amitiza) 24 mcg BID PO Last administered on 08/16/18 08:14; Admin Dose 24 MCG; Start 08/15/18 at 21:00 Magnesium Oxide (Mag-Ox 400) 400 mg DAILY PO Last administered on 08/16/18 08:14; Admin Dose 400 MG; Start 08/15/18 at 18:00 Metoprolol Tartrate (Lopressor) 50 mg BID PO Last administered on 08/16/18 08:14; Admin Dose 50 MG; Start 08/15/18 at 21:00 Potassium Chloride (Micro-K) 8 meq DAILY PO Last administered on 08/16/18 08:13; Admin Dose 8 MEQ; Start 08/15/18 at 18:00 Solifenacin (Vesicare) 10 mg DAILY PO Last administered on 08/16/18 08:14; Admin Dose 10 MG; Start 08/15/18 at 18:00 Albuterol/ Ipratropium (Duoneb) 3 ml Q6H RESP THERAPY HHN Last administered on 08/16/18at 07:43; Admin Dose 3 ML; Start 08/15/18 at 20:00 Insulin Aspart (Novolog Insulin Pen) NOVOLOG *MODERATE* ALGORI... Q6 SC Last administered on 08/16/18at 12:11; Admin Dose 6 UNIT; Start 08/15/18 at 21:00; Stop 08/16/18 at 20:59 Acetaminophen (Tylenol Tab) 500 mg Q6H PRN PO MILD PAIN(1-3)OR ELEVATED TEMP; Start 08/15/18 at 21:00 Miscellaneous Information 1 ea NOTE XX ; Start 08/15/18 at 21:00 Glucose (Glutose) 15 gm Q15M PRN PO DECREASED GLUCOSE; Start 08/15/18 at 21:00 Glucose (Glutose) 22.5 gm Q15M PRN PO DECREASED GLUCOSE; Start 08/15/18 at 21:00 Dextrose (D50w Syringe) 25 ml Q15M PRN IV DECREASED GLUCOSE; Start 08/15/18 at 21:00 Dextrose (D50w Syringe) 50 ml Q15M PRN IV DECREASED GLUCOSE; Start 08/15/18 at 21:00 Glucagon (Glucagen) 1 mg Q15M PRN IM DECREASED GLUCOSE; Start 08/15/18 at 21:00 Glucose (Glutose) 15 gm Q15M PRN BUCCAL DECREASED GLUCOSE; Start 08/15/18 at 21:00 Insulin Aspart (Novolog Insulin Pen) (Adult SC Insulin - Moder... WITH MEALS BEDTIME SC ; Start 08/16/18 at 21:00 Diagnostic Test (Pha) (Accu-Chek) 1 ea 02 XX ; Start 08/17/18 at 02:00 Furosemide (Lasix) 20 mg ONCE ONCE IV ; Start 08/16/18 at 18:00; Stop 08/16/18 at 18:01 Amlodipine Besylate (Norvasc) 10 mg DAILY PO Last administered on 08/16/18at 11:54; Admin Dose 10 MG; Start 08/16/18 at 11:00 JOANN PATEL MD Aug 16, 2018 13:49
--- NOTE | 2018-08-16 14:13 | PDOCDIS ---
Discharge Instructions CONDITION [id number] Patient Condition: [id number] Guarded HOME CARE INSTRUCTIONS: [id number] Diet Instructions: [id number] Reduced Sodium ACTIVITY: [id number] Activity Restrictions: [id number] Slowly Increase Activity [id number] Bathing Restrictions: [id number] Shower FOLLOW UP/APPOINTMENTS Follow-up Plan In [address] Lorelei Patel. in [address] Alcaraz. In 2 weeks to on. SCHOOL/WORK RELEASE May return to School/Work with: None. JOANN PATEL MD Aug 16, 2018 14:13
--- NOTE | 2018-08-16 14:19 | CONS ---
Assessment/Plan Assessment/Plan Assessment/Plan (Daily) # CKD Due to diabetes and hypertension At baseline renal function # CHF Likely diastolic, ECHO pending Continue furosemide # DM With retinopathy and nephropathy Continue long and short acting insulin Monitor blood sugars # HTN controlled continue usual outpatient medications # Anemia Recent iron studies done as outpatient Continue Procrit - will order Consultation Date/Type/Reason Admit Date/Time Aug 15, 2018 at 14:08 Type of Consult nephrology Reason for Consultation CKD Date/Time of Note DATE: 08/16/18 TIME: 14:06 Hx of Present Illness The patient is a 78 y/o female with a history of CKD thought to be due to diabetes and hypertension who is followed by Dr. Alcaraz. Her baseline Cr is in the mid 3s. A full nephrology workup was recently done as an outpatient. She a lso has a long history of htn, on multiple medications as well as diabetes with a history of retinopathy. 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 Last week she was noted to be hypoxemic and was sent to the ER for evaluation. Chest Xray revealed pulmonary edema. She received furosemide and was admitted. Her daughter reports that the patient underwent a cardiology work up last year w ith a stress test and ECHO, told all was normal. She takes furosemide prn, usually about once per week. Ten system ROS negative Past Medical History Medical History: angina, congestive heart failure, coronary artery disease, diabetes, diverticulitis, GERD, high cholesterol, hypertension, hypothyroid, renal disease, urinary tract infection (This is is in the malleolus exhibits movements of scalp this is a pleasant), other (anemia, retinopathy ) Home Meds Reported Medications Magnesium Oxide* (Mag-Oxide*) 400 Mg Tablet, 400 MG PO DAILY, TAB 08/15/18 Atorvastatin Calcium* (Atorvastatin Calcium*) 20 Mg Tablet, 20 MG PO QHS, #30 TAB 08/15/18 Hydralazine Hcl* (Hydralazine Hcl*) 25 Mg Tab, 25 MG PO BID WITH MEALS, #120 TAB 08/15/18 Furosemide* (Furosemide*) 40 Mg Tablet, 40 MG PO DAILY, TAB 08/15/18 Solifenacin* (Vesicare*) 10 Mg Tablet, 10 MG PO DAILY, TAB 08/15/18 Ranolazine* (Ranexa*) 1,000 Mg Tab.sr.12h, 1000 MG PO Q12, TAB 08/15/18 Lubiprostone* (Amitiza*) 24 Mcg Capsule, 24 MCG PO BID, #60 CAP 08/15/18 Metoprolol Tartrate* (Lopressor*) 50 Mg Tab, 50 MG PO BID, #60 TAB 08/15/18 Linagliptin (TRADJENTA) 5 Mg Tablet, 5 MG PO DAILY, TAB 08/15/18 Clopidogrel Bisulfate (Clopidogrel) 75 Mg Tablet, 75 MG PO DAILY, #30 TAB 08/15/18 Tnkxemsioy-Tsfjclform-YZKQ (Tribenzor) 40-10-25 Mg Tablet, 1 TAB PO DAILY, TAB 08/15/18 Potassium Chloride* (Potassium Chloride*) 8 Meq Capsule.er, 8 MEQ PO DAILY, CAP 08/15/18 Medications Current Medications Atorvastatin Calcium (Lipitor) 20 mg QHS PO Last administered on 08/15/18at 20:55; Admin Dose 20 MG; Start 08/15/18 at 21:00 Clopidogrel Bisulfate (plaVIX) 75 mg DAILY PO Last administered on 08/16/18 08:14; Admin Dose 75 MG; Start 08/15/18 at 18:00 Hydralazine HCl (Apresoline) 25 mg BID WITH MEALS PO Last administered on 08/16/18 08:13; Admin Dose 25 MG; Start 08/15/18 at 18:00 Linagliptin (Tradjenta) 5 mg DAILY PO Last administered on 08/16/18 08:13; Admin Dose 5 MG; Start 08/16/18 at 09:00 Lubiprostone (Amitiza) 24 mcg BID PO Last administered on 08/16/18 08:14; Admin Dose 24 MCG; Start 08/15/18 at 21:00 Magnesium Oxide (Mag-Ox 400) 400 mg DAILY PO Last administered on 08/16/18 08:14; Admin Dose 400 MG; Start 08/15/18 at 18:00 Metoprolol Tartrate (Lopressor) 50 mg BID PO Last administered on 08/16/18 08:14; Admin Dose 50 MG; Start 08/15/18 at 21:00 Potassium Chloride (Micro-K) 8 meq DAILY PO Last administered on 08/16/18 08:13; Admin Dose 8 MEQ; Start 08/15/18 at 18:00 Solifenacin (Vesicare) 10 mg DAILY PO Last administered on 08/16/18at 08:14; Admin Dose 10 MG; Start 08/15/18 at 18:00 Albuterol/ Ipratropium (Duoneb) 3 ml Q6H RESP THERAPY HHN Last administered on 08/16/18at 07:43; Admin Dose 3 ML; Start 08/15/18 at 20:00 Insulin Aspart (Novolog Insulin Pen) NOVOLOG *MODERATE* ALGORI... Q6 SC Last administered on 08/16/18at 12:11; Admin Dose 6 UNIT; Start 08/15/18 at 21:00; Stop 08/16/18 at 20:59 Acetaminophen (Tylenol Tab) 500 mg Q6H PRN PO MILD PAIN(1-3)OR ELEVATED TEMP; Start 08/15/18 at 21:00 Miscellaneous Information 1 ea NOTE XX ; Start 08/15/18 at 21:00 Glucose (Glutose) 15 gm Q15M PRN PO DECREASED GLUCOSE; Start 08/15/18 at 21:00 Glucose (Glutose) 22.5 gm Q15M PRN PO DECREASED GLUCOSE; Start 08/15/18 at 21:00 Dextrose (D50w Syringe) 25 ml Q15M PRN IV DECREASED GLUCOSE; Start 08/15/18 at 21:00 Dextrose (D50w Syringe) 50 ml Q15M PRN IV DECREASED GLUCOSE; Start 08/15/18 at 21:00 Glucagon (Glucagen) 1 mg Q15M PRN IM DECREASED GLUCOSE; Start 08/15/18 at 21:00 Glucose (Glutose) 15 gm Q15M PRN BUCCAL DECREASED GLUCOSE; Start 08/15/18 at 21:00 Insulin Aspart (Novolog Insulin Pen) (Adult SC Insulin - Moder... WITH MEALS BEDTIME SC ; Start 08/16/18 at 21:00 Diagnostic Test (Pha) (Accu-Chek) 1 ea 02 XX ; Start 08/17/18 at 02:00 Furosemide (Lasix) 20 mg ONCE ONCE IV ; Start 08/16/18 at 18:00; Stop 08/16/18 at 18:01 Amlodipine Besylate (Norvasc) 10 mg DAILY PO Last administered on 08/16/18at 11:54; Admin Dose 10 MG; Start 08/16/18 at 11:00 Allergies: Coded Allergies: No Known Allergy (Unverified , 08/15/18) Past Surgical History Past Surgical Hx: no surgical history Family History Significant Family History: no pertinent family hx Social History Alcohol Use: none Smoking Status: Never smoker Drug Use: none Exam/Review of Systems Exam Vitals Vital Signs Date Temp Pulse Resp B/P (MAP) Pulse Ox O2 O2 Flow FiO2 Time Delivery Rate 08/16/18 98.7 83 19 135/65 94 11:22 (88) 08/16/18 Nasal 5.0 08:30 Cannula 08/15/18 100 20:13 Intake and Output 08/15/18 08/15/18 08/16/18 1515:00 23:00 07:00 IntakeIntake Total 400 ml OutputOutput Total 900 ml BalanceBalance -500 ml Constitutional: alert Head: normocephalic, atraumatic Eyes: nl conjunctiva ENMT: mucosa pink and moist Neck: supple; No jvd Respiratory: clear to auscultation Cardiovascular: regular rate and rhythm Gastrointestinal: soft, non-tender Extremities: No edema Results Result Diagram: 08/15/18 1220 08/15/18 1220 Results 24hrs Laboratory Tests Test 08/15/18 18:02 08/15/18 18:51 08/15/18 18:52 08/15/18 21:05 Blood Gas Specimen Blood arterial Source Arterial Blood 08/15/2018 8:00:13 Date Drawn PM Arterial Blood pH 7.393 (Temp corrected) Arterial Blood 42.8 pCO2 (Temp correct) Arterial Blood pO2 39.5 *L (Temp corrected) Arterial Blood 25.5 HCO3 Arterial Blood 0.5 Base Excess Arterial Blood 73.9 L Oxygen Saturation Kimo Test ACCEPTAB Arterial Blood Gas Left Radial Puncture Site Arterial 0.3 Blood Carboxyhemog lobin Arterial Blood 0 Methemoglobin Blood Gas A-a O2 59.0 H Differential Oxyhemoglobin 73.7 L Percent Blood Gas 37.0 Temperature Blood Gas Modality ROOM AIR FiO2 21.0 Blood Gas Critical JDALUMPIEN RN Value Read Back Blood Gas Notified DIVINE Whom Blood Gas Notified 08/15/2018 8:11:51 Time PM Magnesium Level 2.3 Carcinoembryonic 2.2 Antigen Thyroid 2.060 Stimulating Hormone (TSH) Iron Level 13 L Total Iron Binding 283 Capacity Percent Iron 5 L Saturation Creatine Kinase 45 Creatine Kinase 1.4 Index Creatinine Kinase 0.62 MB (Mass) Troponin I < 0.012 Bedside Glucose 284 H Test 08/15/18 22:12 08/16/18 00:25 08/16/18 00:35 08/16/18 06:03 Bedside Glucose 248 H 182 179 Creatine Kinase 40 Creatine Kinase 1.2 Index Creatinine Kinase 0.46 MB (Mass) Troponin I < 0.012 Test 08/16/18 08:11 08/16/18 11:52 Bedside Glucose 160 246 H Medications Medication Current Medications Atorvastatin Calcium (Lipitor) 20 mg QHS PO Last administered on 08/15/18 20:55; Admin Dose 20 MG; Start 08/15/18 at 21:00 Clopidogrel Bisulfate (plaVIX) 75 mg DAILY PO Last administered on 08/16/18 08:14; Admin Dose 75 MG; Start 08/15/18 at 18:00 Hydralazine HCl (Apresoline) 25 mg BID WITH MEALS PO Last administered on 08/16/18 08:13; Admin Dose 25 MG; Start 08/15/18 at 18:00 Linagliptin (Tradjenta) 5 mg DAILY PO Last administered on 08/16/18 08:13; Admin Dose 5 MG; Start 08/16/18 at 09:00 Lubiprostone (Amitiza) 24 mcg BID PO Last administered on 08/16/18 08:14; Admin Dose 24 MCG; Start 08/15/18 at 21:00 Magnesium Oxide (Mag-Ox 400) 400 mg DAILY PO Last administered on 08/16/18 08:14; Admin Dose 400 MG; Start 08/15/18 at 18:00 Metoprolol Tartrate (Lopressor) 50 mg BID PO Last administered on 08/16/18 08:14; Admin Dose 50 MG; Start 08/15/18 at 21:00 Potassium Chloride (Micro-K) 8 meq DAILY PO Last administered on 08/16/18 08:13; Admin Dose 8 MEQ; Start 08/15/18 at 18:00 Solifenacin (Vesicare) 10 mg DAILY PO Last administered on 08/16/18 08:14; Admin Dose 10 MG; Start 08/15/18 at 18:00 Albuterol/ Ipratropium (Duoneb) 3 ml Q6H RESP THERAPY HHN Last administered on 4/7/19at 07:43; Admin Dose 3 ML; Start 08/15/18 at 20:00 Insulin Aspart (Novolog Insulin Pen) NOVOLOG *MODERATE* ALGORI... Q6 SC Last administered on 08/16/18at 12:11; Admin Dose 6 UNIT; Start 08/15/18 at 21:00; Stop 08/16/18 at 20:59 Acetaminophen (Tylenol Tab) 500 mg Q6H PRN PO MILD PAIN(1-3)OR ELEVATED TEMP; Start 08/15/18 at 21:00 Miscellaneous Information 1 ea NOTE XX ; Start 08/15/18 at 21:00 Glucose (Glutose) 15 gm Q15M PRN PO DECREASED GLUCOSE; Start 08/15/18 at 21:00 Glucose (Glutose) 22.5 gm Q15M PRN PO DECREASED GLUCOSE; Start 08/15/18 at 21:00 Dextrose (D50w Syringe) 25 ml Q15M PRN IV DECREASED GLUCOSE; Start 08/15/18 at 21:00 Dextrose (D50w Syringe) 50 ml Q15M PRN IV DECREASED GLUCOSE; Start 08/15/18 at 21:00 Glucagon (Glucagen) 1 mg Q15M PRN IM DECREASED GLUCOSE; Start 08/15/18 at 21:00 Glucose (Glutose) 15 gm Q15M PRN BUCCAL DECREASED GLUCOSE; Start 08/15/18 at 21:00 Insulin Aspart (Novolog Insulin Pen) (Adult SC Insulin - Moder... WITH MEALS BEDTIME SC ; Start 08/16/18 at 21:00 Diagnostic Test (Pha) (Accu-Chek) 1 ea 02 XX ; Start 08/17/18 at 02:00 Furosemide (Lasix) 20 mg ONCE ONCE IV ; Start 08/16/18 at 18:00; Stop 08/16/18 at 18:01 Amlodipine Besylate (Norvasc) 10 mg DAILY PO Last administered on 08/16/18at 11:54; Admin Dose 10 MG; Start 08/16/18 at 11:00 DEREK TINEO MD Aug 16, 2018 14:19
--- NOTE | 2018-08-16 14:20 | DS ---
Date/Time of Note Date/Time of Note DATE: 08/16/18 TIME: 14:15 Discharge Summary Admission/Discharge Info Admit Date/Time Aug 15, 2018 at 14:08 Discharge Date/Time 12/2018 1:00 PM. Patient Condition: Guarded Consults Primary care physician; cardiology; nephrology and GI consult. Hx of Present Illness Improving of her shortness of breath. Getting tired easily. Unable to walk without support. Progressively getting better; there is a positive dynamics in terms of decreasing her shortness of breath and decreasing edema during this hospitalization but the elevation of her creatinine is becoming more worse. Will discuss with the family about preparing for dialysis. I discussed with Dr. Alcaraz. Hospital Course Edema both lower extremities and shortness of breath had improved. The patient was found to be severely hypoxic. Currently on 5 L of oxygen via nasal cannula. Breathing treatment also was added to her regimen. GI study will be planned. Home oxygen supply will be provided. The dose doses of medications will be readjusted according to the renal function. Home Meds Reported Medications Magnesium Oxide* (Mag-Oxide*) 400 Mg Tablet, 400 MG PO DAILY, TAB 08/15/18 Atorvastatin Calcium* (Atorvastatin Calcium*) 20 Mg Tablet, 20 MG PO QHS, #30 TAB 08/15/18 Hydralazine Hcl* (Hydralazine Hcl*) 25 Mg Tab, 25 MG PO BID WITH MEALS, #120 TAB 08/15/18 Furosemide* (Furosemide*) 40 Mg Tablet, 40 MG PO DAILY, TAB 08/15/18 Solifenacin* (Vesicare*) 10 Mg Tablet, 10 MG PO DAILY, TAB 08/15/18 Ranolazine* (Ranexa*) 1,000 Mg Tab.sr.12h, 1000 MG PO Q12, TAB 08/15/18 Lubiprostone* (Amitiza*) 24 Mcg Capsule, 24 MCG PO BID, #60 CAP 08/15/18 Metoprolol Tartrate* (Lopressor*) 50 Mg Tab, 50 MG PO BID, #60 TAB 08/15/18 Linagliptin (TRADJENTA) 5 Mg Tablet, 5 MG PO DAILY, TAB 08/15/18 Clopidogrel Bisulfate (Clopidogrel) 75 Mg Tablet, 75 MG PO DAILY, #30 TAB 08/15/18 Hoevfycaxh-Niuwedqvrs-AOPS (Tribenzor) 40-10-25 Mg Tablet, 1 TAB PO DAILY, TAB 08/15/18 Potassium Chloride* (Potassium Chloride*) 8 Meq Capsule.er, 8 MEQ PO DAILY, CAP 08/15/18 Follow-up Plan In [address] Lorelei Patel. in [address] Alcaraz. In 2 weeks to on. Primary Care Provider Joann Patel MD Time spent on discharge: > 30 minutes Pending Labs Laboratory Tests Test 08/15/18 18:02 08/15/18 18:51 08/15/18 18:52 08/15/18 21:05 Blood Gas Blood arterial Specimen Source Arterial Blood 08/15/2018 8:00:1 Date Drawn 3 PM Arterial Blood 7.393 (7.350-7. pH 450) (Temp corrected ) Arterial Blood 42.8 pCO2 mmhg (35-45) (Temp correct) Arterial Blood 39.5 pO2 mmHG (80-90.0) (Temp corrected ) Arterial Blood 25.5 HCO3 mmol/L (22.0-26 .0) Arterial Blood 0.5 Base Excess mmol/L (-3.0-3) Arterial Blood 73.9 Oxygen Saturati mmHG (95.0-100. on 0) Kimo Test ACCEPTAB Arterial Blood Left Radial Gas Puncture Site Arterial 0.3 % (0.0-3.0) Blood Carboxyhe moglobin Arterial Blood 0 % (0.0-1.5) Methemoglobin Blood Gas A-a 59.0 O2 mmHg (7.0-24.0) Differential Oxyhemoglobin 73.7 Percent % (93.0-99.0) Blood Gas 37.0 C Temperature Blood Gas ROOM AIR Modality FiO2 21.0 % Blood Gas MARCK GUERRIER Critical Value Read Back Blood Gas MA Notified Whom Blood Gas 08/15/2018 8:11:5 Notified Time 1 PM Magnesium 2.3 Level mg/dl (1.7-2.5 ) Carcinoembryoni 2.2 c Antigen ng/ml (0.0-5.0 ) Thyroid 2.060 Stimulating MIU/L (0.465-4 Hormone (TSH) .680) Iron Level 13 ug/dl (35-150) Total Iron 283 Binding ug/dl (241-421 Capacity ) Percent Iron 5 % Saturation SAT (22-52) Creatine 45 Kinase IU/L (23-200) Creatine Kinase 1.4 Index Creatinine 0.62 Kinase MB ng/ml (0.0-2.4 (Mass) ) Troponin I < 0.012 ng/ml (0.000-0 .120) Bedside 284 Glucose mg/dL (70-220) Test 08/15/18 22:12 08/16/18 00:25 08/16/18 00:35 08/16/18 06:03 Bedside 248 182 179 Glucose mg/dL (70-220) mg/dL (70-220) mg/dL (70-220) Creatine 40 Kinase IU/L (23-200) Creatine Kinase 1.2 Index Creatinine 0.46 Kinase MB ng/ml (0.0-2.4 (Mass) ) Troponin I < 0.012 ng/ml (0.000-0 .120) Test 08/16/18 08:11 08/16/18 11:52 Bedside 160 246 Glucose mg/dL (70-220) mg/dL (70-220) JOANN PATEL MD Aug 16, 2018 14:20
[2018-08-16] MEDS ORDERED: EPOETIN ALFA-EPBX (NON-ESRD 10,000 UNIT/ML VIAL SC ONE (14:30)
[2018-08-16] MEDS ORDERED: FUROSEMIDE 20 MG INJ IV ONE (18:00)
[2018-08-16] MEDS: ATORVASTATIN 20 MG TAB PO SCH (20:59)
[2018-08-16] MEDS: Insulin NOVOLOG SS MODERATE Algorithm (SS with meals and bedtime) SC SCH (21:23)
[2018-08-17] VITALS (12 sets, daily range): BP systolic 117–147; BP diastolic 57–70; PULSE 68–82; RESP 18
[2018-08-17] MEDS: ALBUTEROL/IPRATROPIUM (NEB) 3 ML AMP HHN SCH ×4 (01:17→20:42)
[2018-08-17] MEDS: ACCUCHECK AT 2AM (Patients on SS coverage) XX SCH (02:04)
--- NOTE | 2018-08-17 07:32 | CONS ---
DATE OF ADMISSION: 08/15/2018 DATE OF CONSULTATION: 08/14/[address] Patel: Thank you very much for allowing me to evaluate this 78-year-old female with known chronic renal insu fficiency, admitted to the hospital with increasing shortness of breath and documented hypoxemia. HISTORICAL EVENTS: As we reviewed together this afternoon I did see the above patient, 3 days ago in the office with respect to her known chronic renal insufficiency and providing her Epogen for the tr eatment of her anemia secondary to the same. When evaluating her she admitted to some mild shortness of breath without chest pain and exam did reveal findings compatible with congestive heart failure i ncluding jugular venous distention, bibasilar rales and increasing leg edema. Prior to seeing her, h er daughter on her own began Lasix, having received 2 doses prior to my seeing her. Importantly, whe n evaluating her O2 saturation ranged between 85% and 88%. I urged her at that time to be admitted t o the hospital, but her daughter was reluctant. At that time, I recommended she begin Lasix 40 mg b. i.d. along with a potassium supplement. She did the same for 1-1/2 days. When reevaluating her yest erday, she had lost about 4 pounds, but still hypoxic with O2 sats ranging between 80 and 84%. I aga in recommended admission to the hospital. She was reluctant to do the same and ultimately decided to see you. Interview with the patient revealed she had no chest pain or prior noted PND and orthopnea had resolved. She was mildly dyspneic on exertion. She had no nausea, vomiting, or abdominal pain. Appetite was reasonable. She denied dysuria or hematuria. PAST MEDICAL HISTORY: 1. 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 2. 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 3. Known diabetes mellitus. 4. History of hypertension. 5. Prior hysterectomy. PRESENT MEDICATIONS: Include: 1. Hydralazine 50 mg 3 times per day. 2. Catapres patch 0.2 mg each week. 3. Metoprolol 50 mg per day. 4. Plavix 75 mg per day. 5. Tradjenta 5 mg per day. 6. Tribenzor 40/10/25 daily. 7. Lipitor 20 mg per day. 8. NovoLog insulin twice a day. 9. Tresiba 200 units per mL, 20 units daily. PHYSICAL EXAMINATION: GENERAL: Elderly female, not dyspneic. VITAL SIGNS: Blood pressure 128/81, pulse 76, respirations were 18. EYES: Extraocular muscles were full. NOSE, MOUTH, AND THROAT: Normal. NECK: No JVD. LUNGS: Reduced breath sounds bilaterally with a few dry rales. HEART: Rhythm regular, I/ systolic murmur. No third sound. ABDOMEN: Nontender. EXTREMITIES: Brawny and trace to 1+ edema. IMPORTANT LABORATORY AND DIAGNOSTIC STUDIES: In May of 2018, creatinine 2.92, on 08/05/2018 it w as 3, on 08/11/2018 was 3.4. Electrolytes were unrevealing. Albumin 3.6 on 327, iron saturation 8%, ferritin 34.1. B12 was normal. Vitamin D was 20. Immunoelectrophoresis was negative. A1c 7.8 on 08/05/2018, hematocrit on 06/02/2018 was 25.6 on 06/16/18 33.4, on 08/11/2018 it was 26.6, platelet c ount was normal. Troponin on 08/11/2018 was 0.02. BNP was 534. Chest x-ray 2 days ago revealed con gestive heart failure. EKG yesterday revealed no acute changes. IMPRESSION AND PLAN: 1. Still evidence of severe hypoxemia with clinical findings still suggesting congestive heart failu re. Hospitalization is certainly needed for echocardiography. Repeat troponins. I suspect a nuclea r treadmill also be needed if troponins are unrevealing. PE must be considered. 2. 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 3. Diabetes mellitus, controlled not optimal. We will plan on following her with you and will insti tute more aggressive diuretic therapy. 4. Anemia. Stool for OB will be needed and will continue Epogen as well as iron intravenously. Dictated By: JUAN ANTONIO MARCIAL MD MR/NTS Conf#: [id number] DID#: [id number] CC: JOANN PATEL MD;*EndCC*
[2018-08-17] MEDS: MAGNESIUM OXIDE 400 MG TAB PO SCH (08:06)
[2018-08-17] MEDS: CLOPIDOGREL 75 MG TAB PO SCH (08:06)
[2018-08-17] MEDS: LUBIPROSTONE 24 MCG CAP PO SCH ×2 (08:07→20:59)
[2018-08-17] MEDS: SOLIFENACIN 5 MG TAB PO SCH (08:07)
[2018-08-17] MEDS: POTASSIUM CHLORIDE (SR) 8 MEQ CAP PO SCH (08:07)
[2018-08-17] MEDS: LINAGLIPTIN 5 MG TABLET PO SCH (08:07)
[2018-08-17] MEDS: METOPROLOL 50 MG TAB PO SCH ×2 (08:08→21:02)
[2018-08-17] MEDS: AMLODIPINE 10 MG TAB PO SCH (08:08)
[2018-08-17] MEDS: Insulin NOVOLOG SS MODERATE Algorithm (SS with meals and bedtime) SC SCH ×4 (08:14→22:18)
[2018-08-17] MEDS ORDERED: FUROSEMIDE 40 MG INJ IV ONE (08:30)
--- NOTE | 2018-08-17 08:36 | CONS ---
Assessment/Plan Assessment/Plan Assessment/Plan (Daily) 1. Severe hypoxemia (02 sat this am 82%) despite continued diuresis, additional lasix given this am and will pursue with venous vasc study, v/q lung scan and ct chest (underlying infiltrate) 2. Anemia sec to ckd, iron sat low, will give iv iron, check stool ob 3. CHf sec to diastolic dysfx 4. CKD sec to diabetic nephropathy 5. Sugar control not optimal given acute illness 6. Urine cult was + in the office will repeat Consultation Date/Type/Reason Admit Date/Time Aug 15, 2018 at 14:08 Initial Consult Date Requesting Provider: JOANN PATEL MD Date/Time of Note DATE: 08/17/18 TIME: 08:32 24 HR Interval Summary Constitutional: other (Family at bedside) Detailed Summary Respiratory: shortness of breath (is less then on admit) Cardiovascular: No chest pain Gastrointestinal: no complaints Genitourinary: no complaints Exam/Review of Systems Exam Vitals Vital Signs Date Temp Pulse Resp B/P (MAP) Pulse Ox O2 O2 Flow FiO2 Time Delivery Rate 08/17/18 74 18 95 Nasal 5.0 08:14 Cannula 08/17/18 98.4 147/70 07:15 (95) 08/15/18 100 20:13 Intake and Output 08/16/18 08/16/18 08/17/18 1515:00 23:00 07:00 IntakeIntake Total 200 ml OutputOutput Total 1050 ml 1400 ml BalanceBalance -850 ml -1400 ml Neck: jvd Respiratory: diminished breath sounds (with rales bases) Cardiovascular: regular rate and rhythm; No S3 Gastrointestinal: soft Extremities: No edema Results Result Diagram: 08/15/18 1220 08/17/18 0523 Results 24hrs Laboratory Tests Test 08/16/18 11:52 08/16/18 17:03 08/16/18 21:04 08/17/18 02:01 Bedside Glucose 246 H 249 H 266 H 249 H Test 08/17/18 05:23 08/17/18 08:05 Sodium Level 138 Potassium Level 4.7 Chloride Level 104 Carbon Dioxide Level 27 Anion Gap 7 Blood Urea Nitrogen 51 H Creatinine 3.75 H Est Glomerular Filtrat Rate mL/min Glucose Level 289 H Calcium Level 9.1 Total Bilirubin 0.3 Direct Bilirubin 0.00 Indirect Bilirubin 0.3 Aspartate Amino 16 Transf (AST/SGOT) Alanine 17 Aminotransferase (ALT/SG PT) Alkaline Phosphatase 117 Total Protein 6.9 Albumin 3.5 Globulin 3.40 H Albumin/Globulin Ratio 1.02 Bedside Glucose 298 H Medications Medication Current Medications Atorvastatin Calcium (Lipitor) 20 mg QHS PO Last administered on 08/16/18 20:59; Admin Dose 20 MG; Start 08/15/18 at 21:00 Clopidogrel Bisulfate (plaVIX) 75 mg DAILY PO Last administered on 08/17/18 08:06; Admin Dose 75 MG; Start 08/15/18 at 18:00 Hydralazine HCl (Apresoline) 25 mg BID WITH MEALS PO Last administered on 08/17/18 08:08; Admin Dose 25 MG; Start 08/15/18 at 18:00 Linagliptin (Tradjenta) 5 mg DAILY PO Last administered on 08/17/18 08:07; Admin Dose 5 MG; Start 08/16/18 at 09:00 Lubiprostone (Amitiza) 24 mcg BID PO Last administered on 08/17/18 08:07; Admin Dose 24 MCG; Start 08/15/18 at 21:00 Magnesium Oxide (Mag-Ox 400) 400 mg DAILY PO Last administered on 08/17/18 08:06; Admin Dose 400 MG; Start 08/15/18 at 18:00 Metoprolol Tartrate (Lopressor) 50 mg BID PO Last administered on 08/17/18 08:08; Admin Dose 50 MG; Start 08/15/18 at 21:00 Potassium Chloride (Micro-K) 8 meq DAILY PO Last administered on 08/17/18 08:07; Admin Dose 8 MEQ; Start 08/15/18 at 18:00 Solifenacin (Vesicare) 10 mg DAILY PO Last administered on 08/17/18 08:07; Admin Dose 10 MG; Start 08/15/18 at 18:00 Albuterol/ Ipratropium (Duoneb) 3 ml Q6H RESP THERAPY HHN Last administered on 08/17/18 08:14; Admin Dose 3 ML; Start 08/15/18 at 20:00 Acetaminophen (Tylenol Tab) 500 mg Q6H PRN PO MILD PAIN(1-3)OR ELEVATED TEMP Last administered on 4/7/19at 15:36; Admin Dose 500 MG; Start 08/15/18 at 21:00 Miscellaneous Information 1 ea NOTE XX ; Start 08/15/18 at 21:00 Glucose (Glutose) 15 gm Q15M PRN PO DECREASED GLUCOSE; Start 08/15/18 at 21:00 Glucose (Glutose) 22.5 gm Q15M PRN PO DECREASED GLUCOSE; Start 08/15/18 at 21:00 Dextrose (D50w Syringe) 25 ml Q15M PRN IV DECREASED GLUCOSE; Start 08/15/18 at 21:00 Dextrose (D50w Syringe) 50 ml Q15M PRN IV DECREASED GLUCOSE; Start 08/15/18 at 21:00 Glucagon (Glucagen) 1 mg Q15M PRN IM DECREASED GLUCOSE; Start 08/15/18 at 21:00 Glucose (Glutose) 15 gm Q15M PRN BUCCAL DECREASED GLUCOSE; Start 08/15/18 at 21:00 Insulin Aspart (Novolog Insulin Pen) (Adult SC Insulin - Moder... WITH MEALS BEDTIME SC Last administered on 08/17/18at 08:14; Admin Dose 8 UNIT; Start 08/16/18 at 21:00 Diagnostic Test (Pha) (Accu-Chek) 1 ea 02 XX Last administered on 08/17/18at 02:04; Admin Dose 1 EA; Start 08/17/18 at 02:00 Amlodipine Besylate (Norvasc) 10 mg DAILY PO Last administered on 08/17/18at 08:08; Admin Dose 10 MG; Start 08/16/18 at 11:00 Furosemide (Lasix) 80 mg ONCE ONCE IV ; Start 08/17/18 at 08:30; Stop 08/17/18 at 08:31; Status JUAN ANTONIO DANIEL MD Aug 17, 2018 08:36
--- NOTE | 2018-08-17 09:22 | RADRPT ---
Echocardiogram Report Patient Name: MIGDALIA LUNAatient ID: [id number] : 1940 (78y 2m)Study Date: 08/16/2018 1:36:13 PM Gender: FAccession #: [id number] Tech: Saira Joe [facility] Location: [facility] Ref.Physician: FUAD MEDINA Height(Cm): BSA: Weight(Kg): Quality: AdequateAccount #: Procedures: Echocardiographic Report: Transthoracic echocardiogram with complete 2D, M-Mode, and doppler examination. Indications: Congestive Heart Failure. Measurements: 2D/M Mode Doppler Measurement Value Normal Range Measurement Value Normal Range LVIDd 2D 4.0 [ 3.8 - 5.2 ] cm AV Peak Albert 1.9 [ 100.0 - 170.0 ] cm/se c LVIDs 2D 2.6 [ 2.2 - 3.5 ] cm AV Peak PG 14.0 [ 2.0 - 9.0 ] mmHg LVPWd 2D 1.0 [ 0.6 - 0.9 ] cm LVOT Peak Albert 1.3 [ 70.0 - 110.0 ] cm/sec IVSd 2D 0.8 [ 0.6 - 0.9 ] cm LVOT Peak PG 7.0 [ 2.0 - 6.0 ] mmHg AoR Diam 2D 2.6 [ 2.3 - 3.1 ] cm MV E Peak Albert 1.0 [ 60.0 - 130.0 ] cm/sec EDV 2D 68.3 [ 46.0 - 106.0 ] ml MV A Peak Albert 0.9 [ 100.0 - 120.0 ] cm/se c ESV 2D 25.3 [ 14.0 - 42.0 ] ml MV E/A 1.1 [ 0.8 - 1.5 ] ratio EF 2D 63.0 [ 54.0 - 74.0 ] percent MV PHT 70.0 [ 20.0 - 100.0 ] msec LA Dimen 2D 3.2 [ 2.7 - 3.8 ] cm MV Decel Time 239 [ 104 - 258 ] msec MV Decel Barry 4 Lat E` Albert 0.1 [ 10.0 - 15.0 ] cm/sec Lateral E/E` 8.7 [ 1.0 - 2.0 ] ratio MV E/A 1.1 [ 0.8 - 1.5 ] ratio MVA PHT 3.1 [ 2.0 - 4.0 ] cm2 TR Peak Albert 2.8 [ 100.0 - 280.0 ] cm/se c TR Peak PG 31.0 mmHg RVSP 31.0 [ 10.0 - 36.0 ] mmHg RA Pressure 8.0 mmHg Findings: Left Ventricle: Normal left ventricular systolic function. Normal left ventricular cavity size. Normal left ventricular wall thickness. Ejection fraction is visually estimated at 60 %. Tissue Doppler/Mitral Doppler indices are consistent with impaired relaxation (Stage I diastolic dysfunction). Right Ventricle: Normal right ventricular size. Normal right ventricular systolic function. Left Atrium: There is moderate enlargement of left atrium. Right Atrium: The right atrium is normal in size. Atrial Septum: Normal atrial septum. Ventricular septum: Normal/intact ventricular septum. Mitral Valve: Normal appearance of the mitral valve. Mild mitral valve regurgitation. Aortic Valve: Normal appearance of the aortic valve. No aortic regurgitation. Tricuspid Valve: Normal appearance of the tricuspid valve. Estimated peak PA systolic pressure 39 mmHg. There is trace tricuspid regurgitation. Pulmonic Valve: Normal pulmonic valve appearance. No evidence of pulmonic regurgitation. Pericardium: Normal pericardium with no significant pericardial effusion. Aorta: Normal aortic root. IVC: Dilated IVC with respiratory collapse consistent with elevated right atrial pressure. Pulmonary Artery: Normal pulmonary artery size. Not well visualized. Conclusions: Normal left ventricular systolic function. Normal left ventricular cavity size. Normal left ventricular wall thickness. Ejection fraction is visually estimated at 60 %. Tissue Doppler/Mitral Doppler indices are consistent with impaired relaxation (Stage I diastolic dysfunction). No significant valvular stenosis or regurgitation seen. Estimated peak PA systolic pressure 39 mmHg. Dilated IVC with respiratory collapse consistent with elevated right atrial pressure. Electronically Signed By: Fuad Medina 2018-08-17 09:21:34 PDT
--- NOTE | 2018-08-17 10:46 | CONS ---
Assessment/Plan Assessment/Plan Hospital Course (Demo Recall) Acute respiratory failure: Pulm edema on CXR on admission. s/p diuresis. I agree that the degree of hypoxia despite diuresis is not fully explained by CHF. CT chest and VQ scan have been ordered. Home O2 being arranged Acute on chronic diastolic dysfunction: Normal EF with diastolic dysfunction. Trigger is likely salt indiscretion. Improved with diuresis.CXR better. HTN DM CKD: unclear baseline but reportedly stage 4. Cr 3.8 on admission. HL -f/u CT chest and VQ scan -if discharged, should take lasix 40mg PO daily and monitor weights at home. She may only need 20mg if she watches her salt intake -no ranexa as no chest pain and no h/o CAD, normal stress one year ago -no entresto as no LV dysfunction -continue metoprolol 50mg BID -amlodipine 10mg -can restart olmesartan tomorrow -continue hydralazine 25mg BID -?clonidine patch to be replaced per daughter -plavix, lipitor 20mg Consultation Date/Type/Reason Admit Date/Time Aug 15, 2018 at 14:08 Initial Consult Date Type of Consult Cardiology Requesting Provider: JOANN PATEL MD Date/Time of Note DATE: 08/17/18 TIME: 10:42 24 HR Interval Summary Free Text/Dictation STill hypoxic off oxygen. Being arranged to have home oxygen. Diuresed well. Given 80mg lasix this am Exam/Review of Systems Vital Signs Vitals Vital Signs Date Temp Pulse Resp B/P (MAP) Pulse Ox O2 O2 Flow FiO2 Time Delivery Rate 08/17/18 80 Room Air 08:43 08/17/18 5.0 08:30 08/17/18 74 18 08:14 08/17/18 98.4 147/70 07:15 (95) 08/15/18 100 20:13 Intake and Output 08/16/18 08/16/18 08/17/18 1515:00 23:00 07:00 IntakeIntake Total 200 ml OutputOutput Total 1050 ml 1400 ml BalanceBalance -850 ml -1400 ml Exam Constitutional: alert, oriented Psych: no complaints, nl mood/affect Head: normocephalic, atraumatic Neck: jvd (8cm) Respiratory: crackles/rales (bases); No clear to auscultation Cardiovascular: regular rate and rhythm, systolic murmur (2/6 JAROD); No edema Gastrointestinal: soft, non-tender; No distended Neurological: nl mental status, nl speech Labs Result Diagram: 08/15/18 1220 08/17/18 0523 Results 24hrs Laboratory Tests Test 08/16/18 11:52 08/16/18 17:03 08/16/18 21:04 08/17/18 02:01 Bedside Glucose 246 H 249 H 266 H 249 H Test 08/17/18 05:23 08/17/18 08:05 Sodium Level 138 Potassium Level 4.7 Chloride Level 104 Carbon Dioxide Level 27 Anion Gap 7 Blood Urea Nitrogen 51 H Creatinine 3.75 H Est Glomerular Filtrat Rate mL/min Glucose Level 289 H Calcium Level 9.1 Ferritin 18.7 Total Bilirubin 0.3 Direct Bilirubin 0.00 Indirect Bilirubin 0.3 Aspartate Amino 16 Transf (AST/SGOT) Alanine 17 Aminotransferase (ALT/SG PT) Alkaline Phosphatase 117 Total Protein 6.9 Albumin 3.5 Globulin 3.40 H Albumin/Globulin Ratio 1.02 Vitamin B12 Level > 1000 H Bedside Glucose 298 H Medications Medications Current Medications Atorvastatin Calcium (Lipitor) 20 mg QHS PO Last administered on 08/16/18 20:59; Admin Dose 20 MG; Start 08/15/18 at 21:00 Clopidogrel Bisulfate (plaVIX) 75 mg DAILY PO Last administered on 08/17/18 08:06; Admin Dose 75 MG; Start 08/15/18 at 18:00 Hydralazine HCl (Apresoline) 25 mg BID WITH MEALS PO Last administered on 08/17/18 08:08; Admin Dose 25 MG; Start 08/15/18 at 18:00 Linagliptin (Tradjenta) 5 mg DAILY PO Last administered on 08/17/18 08:07; Admin Dose 5 MG; Start 08/16/18 at 09:00 Lubiprostone (Amitiza) 24 mcg BID PO Last administered on 08/17/18 08:07; Admin Dose 24 MCG; Start 08/15/18 at 21:00 Magnesium Oxide (Mag-Ox 400) 400 mg DAILY PO Last administered on 08/17/18 0 8:06; Admin Dose 400 MG; Start 08/15/18 at 18:00 Metoprolol Tartrate (Lopressor) 50 mg BID PO Last administered on 08/17/18 08:08; Admin Dose 50 MG; Start 08/15/18 at 21:00 Potassium Chloride (Micro-K) 8 meq DAILY PO Last administered on 08/17/18 08:07; Admin Dose 8 MEQ; Start 08/15/18 at 18:00 Solifenacin (Vesicare) 10 mg DAILY PO Last administered on 08/17/18 08:07; Admin Dose 10 MG; Start 08/15/18 at 18:00 Albuterol/ Ipratropium (Duoneb) 3 ml Q6H RESP THERAPY HHN Last administered on 08/17/18 08:14; Admin Dose 3 ML; Start 08/15/18 at 20:00 Acetaminophen (Tylenol Tab) 500 mg Q6H PRN PO MILD PAIN(1-3)OR ELEVATED TEMP Last administered on 08/16/18at 15:36; Admin Dose 500 MG; Start 08/15/18 at 21:00 Miscellaneous Information 1 ea NOTE XX ; Start 08/15/18 at 21:00 Glucose (Glutose) 15 gm Q15M PRN PO DECREASED GLUCOSE; Start 08/15/18 at 21:00 Glucose (Glutose) 22.5 gm Q15M PRN PO DECREASED GLUCOSE; Start 08/15/18 at 21:00 Dextrose (D50w Syringe) 25 ml Q15M PRN IV DECREASED GLUCOSE; Start 08/15/18 at 21:00 Dextrose (D50w Syringe) 50 ml Q15M PRN IV DECREASED GLUCOSE; Start 08/15/18 at 21:00 Glucagon (Glucagen) 1 mg Q15M PRN IM DECREASED GLUCOSE; Start 08/15/18 at 21:00 Glucose (Glutose) 15 gm Q15M PRN BUCCAL DECREASED GLUCOSE; Start 08/15/18 at 21:00 Insulin Aspart (Novolog Insulin Pen) (Adult SC Insulin - Moder... WITH MEALS BEDTIME SC Last administered on 08/17/18at 08:14; Admin Dose 8 UNIT; Start 08/16/18 at 21:00 Diagnostic Test (Pha) (Accu-Chek) 1 ea 02 XX Last administered on 08/17/18at 02:04; Admin Dose 1 EA; Start 08/17/18 at 02:00 Amlodipine Besylate (Norvasc) 10 mg DAILY PO Last administered on 08/17/18at 08:08; Admin Dose 10 MG; Start 08/16/18 at 11:00 Ferric Sodium Gluconate Complex 125 mg/Sodium Chloride 110 ml @ 110 mls/hr DAILY@1300 IVPB ; Start 08/17/18 at 13:00; Stop 08/21/18 at 13:59 FUAD RODRIGUEZ Aug 17, 2018 10:46
[2018-08-17] MEDS: SOD FERRIC GLUC COMPLX 125 MG in SOD CHLORIDE 0.9% 100 ML IVPB SCH (14:17)
--- NOTE | 2018-08-17 20:43 | PN ---
Date/Time of Note Date/Time of Note DATE: 08/17/18 TIME: 20:40 Assessment/Plan VTE Prophylaxis Risk score (from Ns)>0 risk: 7 SCD applied (from Ns): No SCD contraindicated: low risk/ambulating Pharmacological prophylaxis: LMWH Lines/Catheters IV Catheter Type (from [facility]): [place] line still needed: No Urinary Cath still in place: No Reason Cath still needed: urinary retention Assessment/Plan Hospital Course Edema both lower extremities and shortness of breath had improved. The patient was found to be severely hypoxic. Currently on 5 L of oxygen via nasal cannula. Breathing treatment also was added to her regimen. GI study will be planned. Home oxygen supply will be provided. The dose doses of medications will be readjusted according to the renal function. Assessment/Plan 1. Systolic and diastolic heart failure progressively getting worse 2. Chronic kidney disease stage IV progressively getting worse 3. Diabetes type 2 better controlled 4. Hypertension with better control 5. Epigastric pain 6. Dizziness 7. Memory impairment 8. Aortic stenosis and mitral insufficiency 9. Unable chronic disease 10. Severe osteoarthritis of multiple joints 11. Unstable gait with recurrent episodes of fall 12. Major depression 13. Grief reaction 14. Status post cataract ectomy 15. Severe constipation with episodes of diarrhea 16. Pelvic arterial disease 17. Osteoporosis. 18 severe hypoxemia necessitating rather high flow oxygen now 5 L/min. 19. Indifference toward her overall health condition, apathetic depressed. Result Diagram: 08/15/18 1220 08/17/18 0523 Results 24hrs Laboratory Tests Test 08/16/18 21:04 08/17/18 02:01 08/17/18 05:23 08/17/18 08:05 Bedside Glucose 266 H 249 H 298 H Sodium Level 138 Potassium Level 4.7 Chloride Level 104 Carbon Dioxide Level 27 Anion Gap 7 Blood Urea Nitrogen 51 H Creatinine 3.75 H Est Glomerular Filtrat Rate mL/min Glucose Level 289 H Calcium Level 9.1 Ferritin 18.7 Total Bilirubin 0.3 Direct Bilirubin 0.00 Indirect Bilirubin 0.3 Aspartate Amino 16 Transf (AST/SGOT) Alanine 17 Aminotransferase (ALT/SG PT) Alkaline Phosphatase 117 Total Protein 6.9 Albumin 3.5 Globulin 3.40 H Albumin/Globulin Ratio 1.02 Vitamin B12 Level > 1000 H Test 08/17/18 12:48 4/8/19 15:16 08/17/18 17:04 Bedside Glucose 229 H 339 H Urine Color YELLOW Urine Clarity CLOUDY A Urine pH 5.0 Urine Specific [place] 1.010 Urine Ketones NEGATIVE Urine Nitrite NEGATIVE Urine Bilirubin NEGATIVE Urine Urobilinogen NEGATIVE Urine Leukocyte Esterase 3+ H Urine Microscopic RBC 8 H Urine Microscopic WBC > 182 H Urine Bacteria MANY A Urine Hemoglobin NEGATIVE Urine Random Creatinine 40.56 Urine Protein/Creatinine 7.71 Ratio Urine Glucose NEGATIVE Urine Total Protein 313.0 H Subjective 24 Hr Interval Summary Constitutional: improved, poor po, requiring O2; No no complaints, No chills, No diaphoresis, No disoriented, No febrile, No requiring IVF, No other Eyes: No no complaints, No pain, No discharge, No redness, No visual change, No other ENT: congestion, discharge; No no complaints, No bleeding, No pain, No dysphagia, No sore throat, No other Respiratory: cough, pleuritic pain, shortness of breath; No no complaints, No pain, No sputum, No wheezing, No other Cardiovascular: chest pain, edema, lightheadedness, orthopenea; No no complaints, No palpitations, No paroxysmal nocturnal dyspnea, No other Gastrointestinal: constipation, decreased appetite; No no complaints, No pain, No blood, No diarrhea, No flatus, No nausea, No passing stool, No vomiting, No other Genitourinary: dysuria, discharge; No no complaints, No bleeding, No flank pain, No hematuria, No other Musculoskeletal: back pain, bone/joint pain, neck pain; No no complaints, No restricted range of motion, No swelling, No other Skin: bruising, pruritis; No no complaints, No erythema, No laceration, No rash, No skin lesions, No other Neurologic: dizziness; No no complaints, No confusion, No focal-weakness, No headache, No syncope, No seizure, No other Endocrine: dry skin; No no complaints, No polyuria, No polydypsia, No temp intolerance, No other Psychological: anxiety, confusion; No no complaints, No nl mood/affect, No depression, No suicidal, No other Exam/Review of Systems Exam Vitals Vital Signs Date Temp Pulse Resp B/P (MAP) Pulse Ox O2 O2 Flow FiO2 Time Delivery Rate 08/17/18 98.1 74 18 125/60 96 20:05 (81) 08/17/18 5.0 14:19 08/17/18 Nasal 14:19 Cannula 08/15/18 100 20:13 Intake and Output 08/16/18 08/16/18 08/17/18 1515:00 23:00 07:00 IntakeIntake Total 200 ml OutputOutput Total 1050 ml 1400 ml BalanceBalance -850 ml -1400 ml Constitutional: alert, oriented, well developed, distress, frail; No non-verbal, No obese, No other Psych: anxiety, confusion; No no complaints, No nl mood/affect, No depression, No suicidal, No other Head: normocephalic, atraumatic; No lacerations, No hematomas, No other Eyes: EOMI; No nl conjunctiva, No nl lids, No nl sclera, No PERRL, No icteric, No fundi, disc, No other ENMT: mucosa pink and moist, tympanic membranes; No nl external ears & nose, No nl lips & teeth, No nl nasal mucosa & septum, No intubated, No other Neck: jvd, bruits; No supple, No non-tender, No masses, No thyromegaly, No nuchal rigidity, No other Respiratory: congested cough, diminished breath sounds, labored breathing; No clear to auscultation, No normal air movement, No crackles/rales, No intercostal retraction, No respirations, No tactile fremitus, No wheezing, No other Cardiovascular: regular rate and rhythm, nl pulses, edema, systolic murmur; No bruits, No diastolic murmur, No gallop, No irregular rhythm, No jugular venous distention (JVD), No murmurs/extra sounds, No rub, No S3, No S4, No other Gastrointestinal: soft, nl liver, spleen, bowel sounds Musculoskeletal: nl gait and stance, joint tenderness, muscle tone, muscle w eakness; No nl extremities to inspection, No range of motion, No spine non-tender, No swelling, No other Neurological: DIRECTOR OPERATING II-XII intact Results Results 24hrs Laboratory Tests Test 08/16/18 21:04 08/17/18 02:01 08/17/18 05:23 08/17/18 08:05 Bedside Glucose 266 H 249 H 298 H Sodium Level 138 Potassium Level 4.7 Chloride Level 104 Carbon Dioxide Level 27 Anion Gap 7 Blood Urea Nitrogen 51 H Creatinine 3.75 H Est Glomerular Filtrat Rate mL/min Glucose Level 289 H Calcium Level 9.1 Ferritin 18.7 Total Bilirubin 0.3 Direct Bilirubin 0.00 Indirect Bilirubin 0.3 Aspartate Amino 16 Transf (AST/SGOT) Alanine 17 Aminotransferase (ALT/SG PT) Alkaline Phosphatase 117 Total Protein 6.9 Albumin 3.5 Globulin 3.40 H Albumin/Globulin Ratio 1.02 Vitamin B12 Level > 1000 H Test 08/17/18 12:48 08/17/18 15:16 08/17/18 17:04 Bedside Glucose 229 H 339 H Urine Color YELLOW Urine Clarity CLOUDY A Urine pH 5.0 Urine Specific [place] 1.010 Urine Ketones NEGATIVE Urine Nitrite NEGATIVE Urine Bilirubin NEGATIVE Urine Urobilinogen NEGATIVE Urine Leukocyte Esterase 3+ H Urine Microscopic RBC 8 H Urine Microscopic WBC > 182 H Urine Bacteria MANY A Urine Hemoglobin NEGATIVE Urine Random Creatinine 40.56 Urine Protein/Creatinine 7.71 Ratio Urine Glucose NEGATIVE Urine Total Protein 313.0 H Medications Medication Current Medications Atorvastatin Calcium (Lipitor) 20 mg QHS PO Last administered on 08/16/18 20:59; Admin Dose 20 MG; Start 08/15/18 at 21:00 Clopidogrel Bisulfate (plaVIX) 75 mg DAILY PO Last administered on 08/17/18 08:06; Admin Dose 75 MG; Start 08/15/18 at 18:00 Hydralazine HCl (Apresoline) 25 mg BID WITH MEALS PO Last administered on 08/17/18 17:07; Admin Dose 25 MG; Start 08/15/18 at 18:00 Linagliptin (Tradjenta) 5 mg DAILY PO Last administered on 08/17/18 08:07; Admin Dose 5 MG; Start 08/16/18 at 09:00 Lubiprostone (Amitiza) 24 mcg BID PO Last administered on 08/17/18 08:07; Admin Dose 24 MCG; Start 08/15/18 at 21:00 Magnesium Oxide (Mag-Ox 400) 400 mg DAILY PO Last administered on 08/17/18 08:06; Admin Dose 400 MG; Start 08/15/18 at 18:00 Metoprolol Tartrate (Lopressor) 50 mg BID PO Last administered on 08/17/18 08:08; Admin Dose 50 MG; Start 08/15/18 at 21:00 Potassium Chloride (Micro-K) 8 meq DAILY PO Last administered on 08/17/18 08:07; Admin Dose 8 MEQ; Start 08/15/18 at 18:00 Solifenacin (Vesicare) 10 mg DAILY PO Last administered on 08/17/18 08:07; Ad min Dose 10 MG; Start 08/15/18 at 18:00 Albuterol/ Ipratropium (Duoneb) 3 ml Q6H RESP THERAPY HHN Last administered on 08/17/18 14:19; Admin Dose 3 ML; Start 08/15/18 at 20:00 Acetaminophen (Tylenol Tab) 500 mg Q6H PRN PO MILD PAIN(1-3)OR ELEVATED TEMP Last administered on 08/16/18 15:36; Admin Dose 500 MG; Start 08/15/18 at 21:00 Miscellaneous Information 1 ea NOTE XX ; Start 08/15/18 at 21:00 Glucose (Glutose) 15 gm Q15M PRN PO DECREASED GLUCOSE; Start 08/15/18 at 21:00 Glucose (Glutose) 22.5 gm Q15M PRN PO DECREASED GLUCOSE; Start 08/15/18 at 21:00 Dextrose (D50w Syringe) 25 ml Q15M PRN IV DECREASED GLUCOSE; Start 08/15/18 at 21:00 Dextrose (D50w Syringe) 50 ml Q15M PRN IV DECREASED GLUCOSE; Start 08/15/18 at 21:00 Glucagon (Glucagen) 1 mg Q15M PRN IM DECREASED GLUCOSE; Start 08/15/18 at 21:00 Glucose (Glutose) 15 gm Q15M PRN BUCCAL DECREASED GLUCOSE; Start 08/15/18 at 21:00 Insulin Aspart (Novolog Insulin Pen) (Adult SC Insulin - Moder... WITH MEALS BEDTIME SC Last administered on 08/17/18 17:34; Admin Dose 10 UNIT; Start 08/16/18 at 21:00 Diagnostic Test (Pha) (Accu-Chek) 1 ea 02 XX Last administered on 08/17/18at 02:04; Admin Dose 1 EA; Start 08/17/18 at 02:00 Amlodipine Besylate (Norvasc) 10 mg DAILY PO Last administered on 08/17/18 08:08; Admin Dose 10 MG; Start 08/16/18 at 11:00 Ferric Sodium Gluconate Complex 125 mg/Sodium Chloride 110 ml @ 110 mls/hr DAILY@1300 IVPB Last administered on 08/17/18at 14:17; Admin Dose 110 MLS/HR; Start 08/17/18 at 13:00; Stop 08/21/18 at 13:59 JOANN PATEL MD Aug 17, 2018 20:43
[2018-08-17] MEDS: ATORVASTATIN 20 MG TAB PO SCH (20:59)
[2018-08-18] VITALS (10 sets, daily range): BP systolic 121–153; BP diastolic 61–67; PULSE 60–78; RESP 17–18
[2018-08-18] MEDS: ALBUTEROL/IPRATROPIUM (NEB) 3 ML AMP HHN SCH ×3 (02:27→14:01)
[2018-08-18] MEDS: ACCUCHECK AT 2AM (Patients on SS coverage) XX SCH (02:32)
[2018-08-18] MEDS ORDERED: PANTOPRAZOLE (EC) 40 MG TAB PO ONE (03:30)
--- NOTE | 2018-08-18 08:12 | CONS ---
Assessment/Plan Assessment/Plan Assessment/Plan (Daily) 1. Mild worsening of renal fx with attempted diuresis noted, will cont diuretics and observe today, if dc will need lasix 40 bg bid with close follow up 2. Hypoxemia is disproportionate to her clinical exam, await pul comments, v/q and ct chest noted 3. Anemia is stable 4. 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) Consultation Date/Type/Reason Admit Date/Time Aug 15, 2018 at 14:08 Initial Consult Date Requesting Provider: JOANN PATEL MD Date/Time of Note DATE: 08/18/18 TIME: 08:08 24 HR Interval Summary Constitutional: other (She is comfortable without tachypnea) Exam/Review of Systems Exam Vitals Vital Signs Date Temp Pulse Resp B/P (MAP) Pulse Ox O2 O2 Flow FiO2 Time Delivery Rate 08/18/18 98.7 78 18 153/67 92 07:36 (95) 08/18/18 3.0 02:27 08/18/18 Nasal 02:27 Cannula 08/15/18 100 20:13 Intake and Output 08/17/18 08/17/18 08/18/18 1515:00 23:00 07:00 IntakeIntake Total 800 ml OutputOutput Total 1200 ml BalanceBalance -400 ml Neck: No jvd Respiratory: clear to auscultation, diminished breath sounds Cardiovascular: regular rate and rhythm; No S3 Gastrointestinal: soft Extremities: No edema (leg and sacrum) Results Result Diagram: 08/18/18 0528 08/18/18 0528 Results 24hrs Laboratory Tests Test 08/17/18 12:48 08/17/18 15:16 08/17/18 17:04 08/17/18 21:05 Bedside Glucose 229 H 339 H 279 H Urine Color YELLOW Urine Clarity CLOUDY A Urine pH 5.0 Urine Specific [place] 1.010 Urine Ketones NEGATIVE Urine Nitrite NEGATIVE Urine Bilirubin NEGATIVE Urine Urobilinogen NEGATIVE Urine Leukocyte Esterase 3+ H Urine Microscopic RBC 8 H Urine Microscopic WBC > 182 H Urine Bacteria MANY A Urine Hemoglobin NEGATIVE Urine Random Creatinine 40.56 Urine Protein/Creatinine 7.71 Ratio Urine Glucose NEGATIVE Urine Total Protein 313.0 H Test 08/18/18 02:26 08/18/18 05:28 Bedside Glucose 279 H White Blood Count 8.5 Red Blood Count 3.46 L Hemoglobin 9.3 L Hematocrit 30.3 L Mean Corpuscular Volume 87.6 Mean Corpuscular 26.9 L Hemoglobin Mean Corpuscular 30.7 L Hemoglobin Concent Red Cell Distribution 15.7 H Width Platelet Count 374 Mean Platelet Volume 9.3 Immature Granulocytes % 0.600 H Neutrophils % 69.3 Lymphocytes % 17.8 Monocytes % 9.8 Eosinophils % 2.0 Basophils % 0.5 Nucleated Red Blood 0.0 Cells % Immature Granulocytes # 0.050 H Neutrophils # 5.9 Lymphocytes # 1.5 Monocytes # 0.8 Eosinophils # 0.2 Basophils # 0.0 Nucleated Red Blood 0.0 Cells # Sodium Level 138 Potassium Level 4.5 Chloride Level 100 Carbon Dioxide Level 26 Anion Gap 12 Blood Urea Nitrogen 54 H Creatinine 3.98 H Est Glomerular Filtrat Rate mL/min Glucose Level 275 H Calcium Level 8.8 Phosphorus Level 6.2 H Magnesium Level 2.5 Medications Medication Current Medications Atorvastatin Calcium (Lipitor) 20 mg QHS PO Last administered on 08/17/18 20:59; Admin Dose 20 MG; Start 08/15/18 at 21:00 Clopidogrel Bisulfate (plaVIX) 75 mg DAILY PO Last administered on 08/17/18 08:06; Admin Dose 75 MG; Start 08/15/18 at 18:00 Hydralazine HCl (Apresoline) 25 mg BID WITH MEALS PO Last administered on 08/17/18 17:07; Admin Dose 25 MG; Start 08/15/18 at 18:00 Linagliptin (Tradjenta) 5 mg DAILY PO Last administered on 08/17/18 08:07; Admin Dose 5 MG; Start 08/16/18 at 09:00 Lubiprostone (Amitiza) 24 mcg BID PO Last administered on 08/17/18 20:59; Admin Dose 24 MCG; Start 08/15/18 at 21:00 Magnesium Oxide (Mag-Ox 400) 400 mg DAILY PO Last administered on 08/17/18 08:06; Admin Dose 400 MG; Start 08/15/18 at 18:00 Metoprolol Tartrate (Lopressor) 50 mg BID PO Last administered on 08/17/18 21:02; Admin Dose 50 MG; Start 08/15/18 at 21:00 Potassium Chloride (Micro-K) 8 meq DAILY PO Last administered on 08/17/18 08:07; Admin Dose 8 MEQ; Start 08/15/18 at 18:00 Solifenacin (Vesicare) 10 mg DAILY PO Last administered on 08/17/18 08:07; Admin Dose 10 MG; Start 08/15/18 at 18:00 Albuterol/ Ipratropium (Duoneb) 3 ml Q6H RESP THERAPY HHN Last administered on 08/18/18 02:27; Admin Dose 3 ML; Start 08/15/18 at 20:00 Acetaminophen (Tylenol Tab) 500 mg Q6H PRN PO MILD PAIN(1-3)OR ELEVATED TEMP Last administered on 08/16/18 15:36; Admin Dose 500 MG; Start 08/15/18 at 21:00 Miscellaneous Information 1 ea NOTE XX ; Start 08/15/18 at 21:00 Glucose (Glutose) 15 gm Q15M PRN PO DECREASED GLUCOSE; Start 08/15/18 at 21:00 Glucose (Glutose) 22.5 gm Q15M PRN PO DECREASED GLUCOSE; Start 08/15/18 at 21:00 Dextrose (D50w Syringe) 25 ml Q15M PRN IV DECREASED GLUCOSE; Start 08/15/18 at 21:00 Dextrose (D50w Syringe) 50 ml Q15M PRN IV DECREASED GLUCOSE; Start 08/15/18 at 21:00 Glucagon (Glucagen) 1 mg Q15M PRN IM DECREASED GLUCOSE; Start 08/15/18 at 21:00 Glucose (Glutose) 15 gm Q15M PRN BUCCAL DECREASED GLUCOSE; Start 08/15/18 at 21:00 Insulin Aspart (Novolog Insulin Pen) (Adult SC Insulin - Moder... WITH MEALS BEDTIME SC Last administered on 08/17/18 22:18; Admin Dose 3 UNIT; Start 08/16/18 at 21:00 Diagnostic Test (Pha) (Accu-Chek) 1 ea 02 XX Last administered on 08/18/18 02:32; Admin Dose 1 EA; Start 08/17/18 at 02:00 Amlodipine Besylate (Norvasc) 10 mg DAILY PO Last administered on 08/17/18 08:08; Admin Dose 10 MG; Start 08/16/18 at 11:00 Ferric Sodium Gluconate Complex 125 mg/Sodium Chloride 110 ml @ 110 mls/hr DAILY@1300 IVPB Last administered on 08/17/18at 14:17; Admin Dose 110 MLS/HR; Start 08/17/18 at 13:00; Stop 08/21/18 at 13:59 JUAN ANTONIO MARCIAL MD Aug 18, 2018 08:12
[2018-08-18] MEDS: Insulin NOVOLOG SS MODERATE Algorithm (SS with meals and bedtime) SC SCH ×2 (08:15→12:22)
[2018-08-18] MEDS ORDERED: FUROSEMIDE 40 MG INJ IV ONE (08:30)
[2018-08-18] MEDS: MAGNESIUM OXIDE 400 MG TAB PO SCH (09:46)
[2018-08-18] MEDS: SOLIFENACIN 5 MG TAB PO SCH (09:46)
[2018-08-18] MEDS: LINAGLIPTIN 5 MG TABLET PO SCH (09:47)
[2018-08-18] MEDS: LUBIPROSTONE 24 MCG CAP PO SCH (09:47)
[2018-08-18] MEDS: POTASSIUM CHLORIDE (SR) 8 MEQ CAP PO SCH (09:47)
[2018-08-18] MEDS: CLOPIDOGREL 75 MG TAB PO SCH (09:47)
[2018-08-18] MEDS: AMLODIPINE 10 MG TAB PO SCH (09:47)
[2018-08-18] MEDS: METOPROLOL 50 MG TAB PO SCH (09:48)
--- NOTE | 2018-08-18 11:11 | CONS ---
DATE OF ADMISSION: 08/15/2018 DATE OF CONSULTATION: 08/18/2018 REFERRING PHYSICIAN: Dr. Juan Antonio Marcial. REASON FOR CONSULTATION: Evaluate left calf DVT. HISTORY OF PRESENT ILLNESS: This is a 78-year-old woman with fairly advanced chronic kidney disease, diabetes, hypertension who presented with shortness of breath. She had a workup to evaluate for a p ossible pulmonary embolus and had bilateral lower extremity venous duplex scan done which showed no a bnormality in the right leg and noncompressible peroneal vein in the left leg. She is not symptomati c. She has no pain. She then had a VQ scan which was negative for pulmonary embolus. Her breathing today her daughter says is much better than it was yesterday. She is 99% sat on the monitor today. Yesterday, she was in the 80s. She was in pulmonary edema when she came in and was diuresed with La six and had good urine output overnight. PAST MEDICAL HISTORY: Significant for diabetes, hypertension, hyperlipidemia, chronic kidney disease . MEDICATIONS: Consists of: 1. Mag oxide. 2. Atorvastatin. 3. Hydralazine. 4. Lasix. 5. VESIcare. 6. Ranexa. 7. Amitiza. 8. Lopressor. 9. Tradjenta. 10. Plavix. 11. Tribenzor. 12. Potassium chloride. SOCIAL HISTORY: She is nonsmoker. She does not drink or use any illicit drugs. PAST SURGICAL HISTORY: None. FAMILY HISTORY: Noncontributory. REVIEW OF SYSTEMS: She currently denies any complaints. She has no chest pain, she is not short of breath currently. No nausea, vomiting, diarrhea. No fever, no chills, no recent weight gain or weig ht loss. No abdominal or back pain. She is ambulatory. She has been up walking a little bit. PHYSICAL EXAMINATION: GENERAL: She is an elderly [place] woman. Her daughter was with her who speaks Yi. VITAL SIGNS: She has been afebrile and blood pressure is 153/67, heart rate 78, respiratory rate 18. She is 99% sat now on 4 liters nasal cannula. NECK: She has 2+ radial, brachial, and carotid pulses bilaterally. LUNGS: Clear. HEART: Regular rate and rhythm. ABDOMEN: Soft, nontender, nondistended. EXTREMITIES: She has 2+ popliteal and no dorsalis pedis or posterior tibial pulses bilaterally. She has no edema in the legs. She has some chronic venous stasis changes and hyperpigmentation, but no ulcers, no fibrosis. LABORATORY DATA: Her creatinine looks like, not sure what the baseline is, but today the creatinine is almost 4. I think it has been about the same since she came in. Other labs are relatively normal . IMAGING: I reviewed her imaging studies. The venous duplex of the bilateral lower extremities just shows the left calf DVT in the peroneal vein. It is not clear from the report whether it is chronic or acute or subacute. She has no tenderness and is not symptomatic. The VQ scan was negative. IMPRESSION AND PLAN: Left calf DVT. It is entirely unclear what the chronicity of it is. She is no t symptomatic. There is no evidence of pulmonary embolus. I do not think this had anything to do wi th her shortness of breath. I am going to have them repeat the ultrasound tomorrow and unless it has progressed or propagated, I would just recommend ambulation, leg elevation and serial ultrasounds. If it does show some propagation approximately then she would need to be anticoagulated. Dictated By: TOMAS CASE/THERON Conf#: [id number] DID#: [id number] CC: JUAN ANTONIO MARCIAL MD; JOANN PATEL MD;*[facility]*
[2018-08-18] MEDS: SOD FERRIC GLUC COMPLX 125 MG in SOD CHLORIDE 0.9% 100 ML IVPB SCH (12:46)
--- NOTE | 2018-08-18 13:36 | DS ---
Date/Time of Note Date/Time of Note DATE: 08/18/18 TIME: 13:31 Discharge Summary Admission/Discharge Info Admit Date/Time Aug 15, 2018 at 14:08 Discharge Date/Time August 18, 2018 2:00 PM Discharge Diagnosis 1. Systolic and diastolic heart failure progressively getting worse 2. Chronic kidney disease stage IV progressively getting worse 3. Diabetes type 2 better controlled 4. Hypertension with better control 5. Epigastric pain 6. Dizziness 7. Memory impairment 8. Aortic stenosis and mitral insufficiency 9. Unable chronic disease 10. Severe osteoarthritis of multiple joints 11. Unstable gait with recurrent episodes of fall 12. Major depression 13. Grief reaction 14. Status post cataract ectomy 15. Severe constipation with episodes of diarrhea 16. Pelvic arterial disease 17. Osteoporosis. 18 severe hypoxemia necessitating rather high flow oxygen now 5 L/min. Patient Condition: Guarded Hx of Present Illness Improving of her shortness of breath. Getting tired easily. Unable to walk without support. Progressively getting better; there is a positive dynamics in terms of decreasing her shortness of breath and decreasing edema during this hospitalization but the elevation of her creatinine is becoming more worse. Will discuss with the family about preparing for dialysis. I discussed with Dr. Alcaraz. Hospital Course Edema both lower extremities and shortness of breath had improved. The patient was found to be severely hypoxic. Currently on 3 L of oxygen via nasal cannula. Breathing treatment also was added to her regimen. GI study will be planned. Home oxygen supply provided. doses of medications will be readjusted according to the renal function. Further evaluation for a DVT and possible PE ongoing. Family is pressing for discharge I think another consultation can be done as an outpatient. Home Meds Reported Medications Magnesium Oxide* (Mag-Oxide*) 400 Mg Tablet, 400 MG PO DAILY, TAB 08/15/18 Atorvastatin Calcium* (Atorvastatin Calcium*) 20 Mg Tablet, 20 MG PO QHS, #30 TAB 08/15/18 Hydralazine Hcl* (Hydralazine Hcl*) 25 Mg Tab, 25 MG PO BID WITH MEALS, #120 TAB 08/15/18 Furosemide* (Furosemide*) 40 Mg Tablet, 40 MG PO DAILY, TAB 08/15/18 Solifenacin* (Vesicare*) 10 Mg Tablet, 10 MG PO DAILY, TAB 08/15/18 Ranolazine* (Ranexa*) 1,000 Mg Tab.sr.12h, 1000 MG PO Q12, TAB 08/15/18 Lubiprostone* (Amitiza*) 24 Mcg Capsule, 24 MCG PO BID, #60 CAP 08/15/18 Metoprolol Tartrate* (Lopressor*) 50 Mg Tab, 50 MG PO BID, #60 TAB 08/15/18 Linagliptin (TRADJENTA) 5 Mg Tablet, 5 MG PO DAILY, TAB 08/15/18 Clopidogrel Bisulfate (Clopidogrel) 75 Mg Tablet, 75 MG PO DAILY, #30 TAB 08/15/18 Qxpsbzzzhd-Oweqsasths-UMPY (Tribenzor) 40-10-25 Mg Tablet, 1 TAB PO DAILY, TAB 08/15/18 Potassium Chloride* (Potassium Chloride*) 8 Meq Capsule.er, 8 MEQ PO DAILY, CAP 08/15/18 Follow-up Plan In [address] Lorelei Patel. in [address] Alcaraz. In [address]Koshkaryan bourgeois. Primary Care Provider Joann Patel MD Time spent on discharge: > 30 minutes Pending Labs Laboratory Tests Test 08/17/18 15:16 08/17/18 17:04 08/17/18 21:05 08/18/18 02:26 Urine Color YELLOW (YELLOW) Urine Clarity CLOUDY (CLEAR) Urine pH 5.0 (5.0-9.0) Urine Specific 1.010 (1.003-1. [place] 030) Urine Ketones NEGATIVE mg/dL (NEGATIVE ) Urine Nitrite NEGATIVE mg/dL (NEGATIVE ) Urine NEGATIVE Bilirubin mg/dL (NEGATIVE ) Urine NEGATIVE Urobilinogen mg/dL (NEGATIVE ) Urine Leukocyte 3+ Esterase Lizbeth/ul (NEGATIV E) Urine 8 /HPF (0-5) Microscopic RBC Urine > 182 Microscopic /HPF (0-5) WBC Urine Bacteria MANY /HPF (NONE SEEN) Urine NEGATIVE Hemoglobin mg/dL (NEGATIVE ) Urine Random 40.56 Creatinine mg/dl (20-320) Urine 7.71 RATIO Protein/Creatin ine Ratio Urine Glucose NEGATIVE mg/dL (NEGATIVE ) Urine Total 313.0 Protein mg/dl (0.0-11.9 ) Bedside 339 279 279 Glucose mg/dL (70-220) mg/dL (70-220) mg/dL (70-220) Test 08/18/18 05:28 08/18/18 08:10 08/18/18 12:16 White Blood 8.5 Count 10^3/ul (4.8-10 .8) Red Blood 3.46 Count 10^6/ul (4.20-5 .40) Hemoglobin 9.3 g/dl (12.0-16.0 ) Hematocrit 30.3 % (37.0-47.0) Mean 87.6 Corpuscular fl (82.0-101.0) Volume Mean 26.9 Corpuscular pg (29.0-33.0) Hemoglobin Mean 30.7 Corpuscular g/dl (32.0-37.0 Hemoglobin Conc ) ent Red Cell 15.7 Distribution % (11.5-14.5) Width Platelet Count 374 10^3/UL (140-41 5) Mean Platelet 9.3 Volume fl (7.4-10.4) Immature 0.600 Granulocytes % % (0.001-0.429) Neutrophils % 69.3 % (39.0-77.0) Lymphocytes % 17.8 % (15.0-51.0) Monocytes % 9.8 % (0.0-11.0) Eosinophils % 2.0 % (0.0-7.0) Basophils % 0.5 % (0.0-2.0) Nucleated Red 0.0 Blood Cells % /100WBC (0.0-0. 0) Immature 0.050 Granulocytes # 10^3/ul (0.0-0. 031) Neutrophils # 5.9 10^3/ul (1.6-7. 5) Lymphocytes # 1.5 10^3/ul (0.8-2. 9) Monocytes # 0.8 10^3/ul (0.3-0. 9) Eosinophils # 0.2 10^3/ul (0.0-0. 5) Basophils # 0.0 10^3/ul (0.0-0. 1) Nucleated Red 0.0 Blood Cells # 10^3/ul (0.0-0. 0) Sodium Level 138 mmol/L (135-144 ) Potassium 4.5 Level mmol/L (3.5-5.1 ) Chloride Level 100 mmol/L (97-110) Carbon Dioxide 26 Level mmol/L (21-31) Anion Gap 12 (5-13) Blood Urea 54 mg/dl (7-20) Nitrogen Creatinine 3.98 mg/dl (0.44-1.0 0) Est Glomerular mL/min (>60) Filtrat Rate mL/min Glucose Level 275 mg/dl (70-220) Calcium Level 8.8 mg/dl (8.4-10.2 ) Phosphorus 6.2 Level mg/dl (2.5-4.9) Magnesium 2.5 Level mg/dl (1.7-2.5) Bedside 224 250 Glucose mg/dL (70-220) mg/dL (70-220) Microbiology Date/Time Source Procedure Growth Status 08/17/18 15:16 Clean Catch Urine Urine Culture - Preliminary Gram Resulted Negative Lauro JOANN PATEL MD Aug 18, 2018 13:36
== END 2018-08-18 16:17 | disposition home or self-care (01) | DRG 291 ==
LOC: E/R 11:46 → 6WM 14:08
PROVIDERS: ADMIT Family Medicine; ATTEND Family Medicine
DX: I13.0 Hypertensive heart and chronic kidney disease with heart failure and stage 1 through stage 4 chronic kidney disease, or unspecified chronic kidney disease (principal); I50.33 Acute on chronic diastolic (congestive) heart failure; J96.01 Acute respiratory failure with hypoxia; N18.4 Chronic kidney disease, stage 4 (severe); E11.22 Type 2 diabetes mellitus with diabetic chronic kidney disease; E11.21 Type 2 diabetes mellitus with diabetic nephropathy; E11.319 Type 2 diabetes mellitus with unspecified diabetic retinopathy without macular edema; I35.0 Nonrheumatic aortic (valve) stenosis; I34.0 Nonrheumatic mitral (valve) insufficiency; D63.1 Anemia in chronic kidney disease; E78.5 Hyperlipidemia, unspecified; I25.10 Atherosclerotic heart disease of native coronary artery without angina pectoris; K21.9 Gastro-esophageal reflux disease without esophagitis; E03.9 Hypothyroidism, unspecified; Z87.440 Personal history of urinary (tract) infections; M81.0 Age-related osteoporosis without current pathological fracture; K59.00 Constipation, unspecified; R19.7 Diarrhea, unspecified; F43.20 Adjustment disorder, unspecified; F32.9 Major depressive disorder, single episode, unspecified; Z91.81 History of falling; R26.81 Unsteadiness on feet; M19.90 Unspecified osteoarthritis, unspecified site; R41.3 Other amnesia; R42 Dizziness and giddiness; Z79.4 Long term (current) use of insulin
CPT/HCPCS: 36415; 36600; 71045; 71250; 78582; 80048; 80053; 81001; 81003; 82378; 82550; 82553; 82570; 82607; 82728; 82803; 82962; 83540; 83735; 83880; 84100; 84443; 84484; 85025; 85610; 85730; 87086; 87400; 93005; 93306; 93970; 94640; 94644; 94664; 96374; 97116; 97162; A9540; J1815; J1940; J2916; Q5106